=== PATIENT | female | born 1940 | race Caucasian/White ===

== ENCOUNTER → 2017-12-06 11:09 | Outpatient (CLI) | payer MEDICARE, SELFPAY ==
--- NOTE | 2017-12-06 | DI.CT.S_ITS ---
PROCEDURE: CT ABDOMEN PELVIS WO CON INDICATIONS: KIDNEY CANCER TECHNIQUE: Noncontrast 5 mm thick sections acquired from the diaphragms to the symphysis. 5 mm coronal and sagittal reformats were then performed. For radiation dose reduction, the following was used: automated exposure control, adjustment of mA and/or kV according to patient size. COMPARISON: [facility], CT, ABDOMEN/PELVIS WITHOUT CONTRAS, 10/28/2016, 13:01. [facility], CT, ABDOMEN/PELVIS WITHOUT CONTRAS, 11/24/2015, 9:13. [facility], CT, ABDOMEN/PELVIS WITHOUT CONTRAS, 02/19/2014, 10:13. FINDINGS: Image quality: Excellent. ABDOMEN: Lung bases: Lung bases are clear. Heart size is normal. Solid organs: Liver is normal in size. Gallbladder is not seen but metallic surgical clips are not present at the gallbladder fossa. The kidney likely has been resected, without utilization of metallic clips. Pancreas is normal in contours. Spleen is normal in size. No adrenal nodules. The right kidney is normal in size, without hydronephrosis or nephrolithiasis. The left kidney is surgically absent. Peritoneum and bowel: Unenhanced bowel loops demonstrate normal wall thickness and caliber. No free fluid or air. Nodes and vessels: No retroperitoneal or mesenteric adenopathy by size criteria. Aorta and inferior vena cava are normal in caliber. Miscellaneous: No ventral hernias. PELVIS: Genitourinary: Bladder wall thickness is normal. Miscellaneous: No inguinal hernias or adenopathy. Bones: No suspicious bony lesions. No vertebral body compression fractures. IMPRESSION: Prior left nephrectomy. No sign of metastatic disease. Gallbladder not visualized, likely due to prior cholecystectomy without use of metallic surgical clips. Dictated by: James Yu M.D. on 12/06/2017 at 12:46 Approved by: James Yu M.D. on 12/06/2017 at 12:54
--- NOTE | 2017-12-06 | DI.RAD.S_ITS ---
PROCEDURE: XR CHEST 2V INDICATIONS: renal cell carcinoma TECHNIQUE: 2 views of the chest were acquired. COMPARISON: [facility], CT, CT ABDOMEN PELVIS WO CON, 12/06/2017, 11:25. [facility], CR, CHEST 2 VIEW, 05/18/2017, 8:36. [facility], CR, CHEST 2 VIEW, 08/26/2015, 9:48. [facility], , CHEST 2 VIEW, 01/27/2015, 13:51. FINDINGS: Surgical changes and devices: None. Lungs and pleura: No pleural effusions or pneumothorax. Lungs are clear. There is chronic mild asymmetric elevation of the right hemidiaphragm anteriorly Mediastinum: Mediastinal contours are normal. Heart size is normal. Bones and chest wall: No suspicious bony abnormalities. Old left posterolateral upper rib fractures again noted Soft tissues appear unremarkable. IMPRESSION: No sign of metastatic disease. Old left superior lateral rib fractures that are well healed. Chronic mild asymmetric elevation of the anterior right hemidiaphragm. Dictated by: James Yu M.D. on 12/06/2017 at 12:24 Approved by: James Yu M.D. on 12/06/2017 at 12:25
== END ==
PROVIDERS: Family Provider Family Medicine; PCP Family Medicine; Visit Provider Family Medicine
DX: C64.2 Malignant neoplasm of left kidney, except renal pelvis (principal)
CPT/HCPCS: 71046; 74176

== ENCOUNTER → 2017-12-07 09:01 | Outpatient (CLI) | payer MEDICARE, SELFPAY ==
[2017-12-07 09:38] LABS: Add Manual Diff / Slide Review NO; Basophils Percent Auto 0.4 % (0-2); Eosinophils Percent Auto 2.1 % (2-4); Hematocrit 38.6 % (36-46); Hemoglobin 13.2 g/dL (12.0-16.0); Lymphocytes Percent Auto 24.5 % (25-40); Mean Corpuscular HGB Conc 34.1 % (30-36); Mean Corpuscular Hemoglobin 29.4 PG (26-34); Mean Corpuscular Volume 86.1 fL (80-100); Monocytes Percent Auto 5.8 % (3-14); Neutrophils Absolute Auto 4600 /uL (3000-5900); Neutrophils Percent Auto 67.2 % (50-75); Platelet Count 336 X10^3/uL (150-400); Red Blood Cell Count 4.49 X10^6/uL (4.0-5.2); Red Cell Distribution Width 13.3 % (11.6-14.8); White Blood Cell Count 6.9 X10^3/uL (4.5-11.0)
[2017-12-07 09:59] LABS: Alanine Aminotransferase 19 IU/L (9-52); Albumin 4.3 g/dL (3.5-5.0); Albumin Globulin Ratio 1.4 (1.0-2.8); Alkaline Phosphatase 180 U/L (38-126); Aspartate Aminotransferase 18 IU/L (14-36); BUN Creatinine Ratio 12.2 (6-22); Bilirubin Total 0.6 mg/dL (0.2-1.3); Blood Urea Nitrogen 22 mg/dL (7-17); Calcium 9.5 mg/dL (8.4-10.2); Carbon Dioxide 22 mmol/L (22-32); Chloride 105 mmol/L (98-107); Cholesterol 141 mg/dL (140-199); Estimated Glomerular Filt Rate 27.5 mL/min (>60); Glucose 150 mg/dL (80-110); HDL Cholesterol 52 mg/dL (40-60); HEMOLYSIS < 15 (0-50); LDL Cholesterol Calculated 57 mg/dL (<100); Potassium 4.4 mmol/L (3.4-5.1); Sodium 141 mmol/L (137-145); Total Protein 7.3 g/dL (6.3-8.2); Triglycerides 161 mg/dL (35-150)
[2017-12-07 10:01] LABS: Hemoglobin A1C% w Est Avg Glu 7.1 % (4.0-6.0)
[2017-12-07 10:24] LABS: Free T3, Triiodothyronine Free 3.18 pg/mL (2.77-5.27); Free T4, Direct Thyroxine 1.27 ng/dL (0.78-2.19)
[2017-12-07 10:38] LABS: Thyroid Stimulating Hormone 1.59 uIU/mL (0.47-4.68)
== END ==
PROVIDERS: Family Provider Family Medicine; PCP Family Medicine; Visit Provider Family Medicine
DX: E11.21 Type 2 diabetes mellitus with diabetic nephropathy (principal); C64.2 Malignant neoplasm of left kidney, except renal pelvis; N18.3 Chronic kidney disease, stage 3 (moderate); E05.80 Other thyrotoxicosis without thyrotoxic crisis or storm
CPT/HCPCS: 36415; 80053; 80061; 83036; 84439; 84443; 84481; 85025

== ENCOUNTER → 2017-12-12 12:12 | Outpatient (CLI) | payer MEDICARE, SELFPAY ==
[2017-12-12 14:52] LABS: Creatinine Urine Random 90.1 mg/dL; Protein (Total) Urine Random 44 mg/dL (0-12); Protein Creatinine Ratio Urine 0.48 GRAM/24H
[2017-12-14 15:14] LABS: Parathyroid Hormone Int 69 pg/mL (14-64)
== END ==
PROVIDERS: Family Provider Family Medicine; PCP Family Medicine; Visit Provider Student in an Organized Health Care Education/Training Program
DX: R80.9 Proteinuria, unspecified (principal); N25.81 Secondary hyperparathyroidism of renal origin
CPT/HCPCS: 36415; 82570; 83970; 84156

== ENCOUNTER → 2018-02-01 11:06 | Outpatient (CLI) | payer MEDICARE, SELFPAY ==
[2018-02-01 12:33] LABS: Alanine Aminotransferase 31 IU/L (9-52); Albumin 4.5 g/dL (3.5-5.0); Albumin Globulin Ratio 1.3 (1.0-2.8); Alkaline Phosphatase 199 U/L (38-126); Aspartate Aminotransferase 28 IU/L (14-36); Bilirubin Total 0.9 mg/dL (0.2-1.3); Bilirubin Unconjugated 0.5 mg/dL (0.0-1.1); Globulin 3.4 g/dL (1.7-4.1); HEMOLYSIS 19 (0-50); Total Protein 7.9 g/dL (6.3-8.2)
[2018-02-01 12:35] LABS: Add Manual Diff / Slide Review NO; Basophils Percent Auto 0.7 % (0-2); Hematocrit 40.1 % (36-46); Hemoglobin 13.9 g/dL (12.0-16.0); Lymphocytes Percent Auto 20.1 % (25-40); Mean Corpuscular HGB Conc 34.8 % (30-36); Mean Corpuscular Hemoglobin 29.7 PG (26-34); Mean Corpuscular Volume 85.3 fL (80-100); Monocytes Percent Auto 5.9 % (3-14); Neutrophils Absolute Auto 6200 /uL (3000-5900); Neutrophils Percent Auto 72.3 % (50-75); Platelet Count 363 X10^3/uL (150-400); Red Cell Distribution Width 13.3 % (11.6-14.8); White Blood Cell Count 8.6 X10^3/uL (4.5-11.0)
[2018-02-01 12:49] LABS: Free T3, Triiodothyronine Free 2.43 pg/mL (2.77-5.27); Free T4, Direct Thyroxine 1.12 ng/dL (0.78-2.19)
[2018-02-01 13:03] LABS: Thyroid Stimulating Hormone 2.96 uIU/mL (0.47-4.68)
== END ==
PROVIDERS: PCP Family Medicine; Visit Provider Internal Medicine Endocrinology, Diabetes & Metabolism
DX: E05.90 Thyrotoxicosis, unspecified without thyrotoxic crisis or storm (principal)
CPT/HCPCS: 36415; 80076; 84439; 84443; 84481; 85025

== ENCOUNTER → 2018-03-08 10:38 | Outpatient (CLI) | payer MEDICARE, SELFPAY ==
[2018-03-08 11:53] LABS: BUN Creatinine Ratio 13.1 (6-22); Blood Urea Nitrogen 21 mg/dL (7-17); Calcium 9.1 mg/dL (8.4-10.2); Carbon Dioxide 24 mmol/L (22-32); Chloride 106 mmol/L (98-107); Estimated Glomerular Filt Rate 31.4 mL/min (>60); Glucose 98 mg/dL (80-110); HEMOLYSIS < 15 (0-50); Potassium 4.5 mmol/L (3.4-5.1); Sodium 141 mmol/L (137-145)
[2018-03-08 13:53] LABS: Creatinine Urine Random 98.9 mg/dL; Protein (Total) Urine Random 37 mg/dL (0-12); Protein Creatinine Ratio Urine 0.37 GRAM/24H
== END ==
PROVIDERS: Family Provider Family Medicine; PCP Family Medicine; Visit Provider Student in an Organized Health Care Education/Training Program
DX: N05.9 Unspecified nephritic syndrome with unspecified morphologic changes (principal); D64.9 Anemia, unspecified; R80.9 Proteinuria, unspecified
CPT/HCPCS: 36415; 80048; 82570; 84156; 85014; 85018

== ENCOUNTER → 2018-03-24 10:56 | Outpatient (CLI) | payer MEDICARE, SELFPAY ==
[2018-03-24 11:50] LABS: Add Manual Diff / Slide Review NO; Eosinophils Percent Auto 1.3 % (2-4); Hematocrit 39.7 % (36-46); Hemoglobin 13.4 g/dL (12.0-16.0); Lymphocytes Percent Auto 25.5 % (25-40); Mean Corpuscular HGB Conc 33.6 % (30-36); Mean Corpuscular Hemoglobin 29.2 PG (26-34); Neutrophils Absolute Auto 5300 /uL (3000-5900); Neutrophils Percent Auto 66.2 % (50-75); Platelet Count 328 X10^3/uL (150-400); Red Blood Cell Count 4.57 X10^6/uL (4.0-5.2); Red Cell Distribution Width 13.5 % (11.6-14.8)
[2018-03-24 11:58] LABS: Alanine Aminotransferase 32 IU/L (9-52); Albumin 4.3 g/dL (3.5-5.0); Albumin Globulin Ratio 1.4 (1.0-2.8); Alkaline Phosphatase 195 U/L (38-126); Aspartate Aminotransferase 25 IU/L (14-36); Bilirubin Total 0.7 mg/dL (0.2-1.3); Bilirubin Unconjugated 0.4 mg/dL (0.0-1.1); HEMOLYSIS 41 (0-50); Total Protein 7.3 g/dL (6.3-8.2)
[2018-03-24 12:15] LABS: Free T3, Triiodothyronine Free 2.96 pg/mL (2.77-5.27); Free T4, Direct Thyroxine 1.23 ng/dL (0.78-2.19)
[2018-03-24 12:29] LABS: Thyroid Stimulating Hormone 1.38 uIU/mL (0.47-4.68)
== END ==
PROVIDERS: Family Provider Family Medicine; PCP Family Medicine; Visit Provider Internal Medicine Endocrinology, Diabetes & Metabolism
DX: E05.90 Thyrotoxicosis, unspecified without thyrotoxic crisis or storm (principal)
CPT/HCPCS: 36415; 80076; 84439; 84443; 84481; 85025

== ENCOUNTER 2018-04-15 14:39 | Emergency (ER) | payer MEDICARE, SELFPAY ==
--- NOTE | 2018-04-15 14:42 | ED.UPPEXIN ---
HPI - Extremity Injury (Upper) <PABLO Mora - Last Filed: 04/15/18 22:09> General Chief Complaint: Extremity Injury, Upper Stated Complaint: RT ARM BROKEN AND IN PAIN Time Seen by Provider: 04/15/18 14:42 Source: patient Mode of arrival: ambulatory Limitations: no limitations History of Present Illness HPI narrative: 77-year-old female with history of chronic back pain and is a nonsmoker here for complaint of pain to her right forearm area and wrist. She was seen yesterday in the emergency room in [facility] after she slipped on the ice causing a ground level fall. She was diagnosed with a right wrist fracture. She was put in a splint. She reports that she has increasing pain into day to the forearm area. She contacted her doctor who sent her here for further evaluation and treatment and evaluation for compartment syndrome. She denies any new trauma to the area pain is limited to the right forearm area. Related Data Allergies Allergy/AdvReac Type Severity Reaction Status Date / Time No Known Drug Allergies Allergy Verified 04/15/18 14:49 Review of Systems <PABLO Mora - Last Filed: 04/15/18 22:09> Constitutional Denies chills, Denies fever(s), Denies lethargy and Denies weakness Eyes Denies change in vision, Denies eye discharge, Denies irritation and Denies loss of vision ENT Ears, Nose, Mouth, and Throat: Denies change in voice, Denies neck pain and Denies sore throat Cardiovascular Denies chest pain, Denies irregular heart rhythm, Denies lightheadedness, Denies palpitations, Denies dyspnea, Denies dyspnea on exertion and Denies orthopnea Respiratory Denies cough, Denies dyspnea, Denies dyspnea on exertion and Denies wheezing Gastrointestinal Gastrointestinal: Denies abdominal pain, Denies change in bowel habits, Denies diarrhea, Denies nausea and Denies vomiting Genitourinary Denies hematuria, Denies flank pain, Denies urinary incontinence and Denies urinary urgency Musculoskeletal Denies neck pain Comments: Right wrist and forearm pain Integumentary/Breasts Denies pruritus, Denies erythema, Denies rash and Denies wounds Neurologic Denies confusion, Denies loss of vision and Denies weakness Psychiatric Denies anxiety, Denies confusion, Denies depression, Denies homicidal ideation and Denies suicidal ideation Endocrine Denies palpitations Hematologic/Lymphatic Denies easy bruising Allergic/Immunologic Denies wheezing Exam <PABLO Mora - Last Filed: 04/15/18 22:09> Initial Vital Signs Initial Vital Signs: Vital Signs Temperature 98.2 F 04/15/18 14:49 Pulse Rate 69 04/15/18 14:49 Respiratory Rate 16 04/15/18 14:49 Blood Pressure 144/56 H 04/15/18 14:49 Pulse Oximetry 98 04/15/18 14:49 Const General: cooperative and well developed Nutritional Appearance: well nourished Orientation: alert, awake, oriented x3 and not confused HENOR Mouth: oral mucosae normal and moist mucous membranes Eyes Conjunctivae: conjunctivae normal Sclera: sclerae normal Pupils: PERRL EOM: EOM intact bilaterally Resp Effort & Inspection: normal respiratory effort, able to speak in complete sentences, no respiratory distress and no use of accessory muscles Auscultation: clear to auscultation bilaterally, no rales, no rhonchi and no wheezes Cardio Rate: regular rate Rhythm: regular rhythm Heart Sounds: no click, no gallops, no murmurs and no rubs Pulses: normal peripheral pulses Skin General: no rashes or lesions noted, No jaundice and No petechiae Neuro General: alert, oriented x3, gait normal and no focal motor deficits Speech: speech normal Extrem Other: Ecchymosis and slight swelling to the right wrist area. No snuffbox tenderness. Tenderness on palpation to the forearm area and to the hand and wrist. Distal sensation is intact. Distal pulses are intact. Distal range of motion is intact. No open lesions. No deformities. <Oliver Mohr DO - Last Filed: 04/17/18 20:08> Initial Vital Signs Initial Vital Signs: Vital Signs Temperature 98.2 F 04/15/18 14:49 Pulse Rate 69 04/15/18 14:49 Respiratory Rate 16 04/15/18 14:49 Blood Pressure 144/56 H 04/15/18 14:49 Pulse Oximetry 98 04/15/18 14:49 Course <PABLO Mora - Last Filed: 04/15/18 22:09> Orders Ordered: ED Orders 04/15/18 15:12 XR forearm RT 2V Stat Vital Signs - 8 hr 04/15/18 14:49 04/15/18 17:11 Temperature 98.2 F 98.4 F Pulse Rate 69 65 Respiratory Rate 16 16 Blood Pressure 144/56 H Pulse Oximetry 98 97 <Oliver Mohr DO - Last Filed: 04/17/18 20:08> Orders Ordered: ED Orders 04/15/18 15:12 XR forearm RT 2V Stat Vital Signs - 8 hr 04/15/18 14:49 04/15/18 17:11 Temperature 98.2 F 98.4 F Pulse Rate 69 65 Respiratory Rate 16 16 Blood Pressure 144/56 H Pulse Oximetry 98 97 MDM - Extremity Injury (Upper) <PABLO Mora - Last Filed: 04/15/18 22:09> Imaging Data Right forearm: Radiologist's impression: [address] [address] XRay Report Signed Patient: Anita Aguirre CMR#: [id number] : 3Acct:[id number] Age/Sex: 77 / FDate of Service: 04/15/18 Loc: ED Accession Number: [id number] Procedure: XR forearm RT 2V Ordering Provider: Cayden Shin PROCEDURE: XR FOREARM RT 2V INDICATIONS: Recent diagnosis of r wrist fx pain now to all of forearm TECHNIQUE: 2 views of the forearm were acquired. COMPARISON: Outside Facility, RG, XR WRIST 3V RIGHT, 04/14/2018, 15:06. FINDINGS: Bones: Mildly impacted distal radial metaphyseal fracture is present. There is suspected to be a poorly visualized focus of intra-articular extension. Ulnar styloid fracture is present. Overall appearance is unchanged compared to prior exam. Soft tissues: No suspicious soft tissue calcifications or masses. IMPRESSION: Distal radial metaphyseal fracture with suspected mild degree of intra-articular extension. Ulnar styloid fracture is noted. Dictated by: Fransisca Smith M.D. on 04/15/2018 at 15:50 Approved by: Fransisca Smith M.D. on 04/15/2018 at 15:51 [facility] Narrative Medical decision making narrative: Splint was removed to the right forearm. After short while her pain decreased. Repeat film of the right forearm was obtained and shows a distal radial metaphyseal fracture and also suspected ulnar styloid fracture. She is placed in a new splint a sugar-tong splint to the right forearm. Use currently prescribed pain management regimen as needed for any discomfort. Ice and elevation help with any swelling. Call Orthopedics office tomorrow to schedule follow-up appointment later this week. For any worsening symptoms return to the emergency room. Discharge Plan Departure Patient Disposition: Home Clinical Impression: Fracture of right wrist Discharge Date/Time: 04/15/18 17:12 Interventions: ED Discharge Assessment Last Done: 04/15/18 17:11 Instructions: DI for Wrist Fracture Activity Restrictions/Additional Instructions: X-ray of the right forearm shows distal fractures of the radius and also the ulna. You are placed in a splint for comfort and support. You are also placed in a sling use as directed. Use currently prescribed pain management regimen as needed for any discomfort. Follow up with Orthopedics. Call the office tomorrow to schedule follow-up appointment. Use ice and elevation to help with swelling. For any worsening symptoms return to the emergency room. Referrals: Mady Mak MD [Primary Care Provider] - Ben Mao MD [Physician] - <Oliver Mohr DO - Last Filed: 04/17/18 20:08> Cosign ED Attending Kera Attestation: I was available for consultation during this patient's emergency department encounter
[2018-04-15 14:49] VITALS: BP 144/56; PULSE 69; RESP 16; TEMP 36.8; O2SAT 98; BMI 34.7
--- NOTE | 2018-04-15 15:12 | DI.RAD.S_ITS ---
PROCEDURE: XR FOREARM RT 2V INDICATIONS: Recent diagnosis of r wrist fx pain now to all of forearm TECHNIQUE: 2 views of the forearm were acquired. COMPARISON: Outside Facility, RG, XR WRIST 3V RIGHT, 04/14/2018, 15:06. FINDINGS: Bones: Mildly impacted distal radial metaphyseal fracture is present. There is suspected to be a poorly visualized focus of intra-articular extension. Ulnar styloid fracture is present. Overall appearance is unchanged compared to prior exam. Soft tissues: No suspicious soft tissue calcifications or masses. IMPRESSION: Distal radial metaphyseal fracture with suspected mild degree of intra-articular extension. Ulnar styloid fracture is noted. Dictated by: Fransisca Smith M.D. on 04/15/2018 at 15:50 Approved by: Fransisca Smith M.D. on 04/15/2018 at 15:51
--- NOTE | 2018-04-15 16:15 | ED_ITS ---
HPI - Extremity Injury (Upper) <PABLO Mora - Last Filed: 04/15/18 22:09> General Chief Complaint: Extremity Injury, Upper Stated Complaint: RT ARM BROKEN AND IN PAIN Time Seen by Provider: 04/15/18 14:42 Source: patient Mode of arrival: ambulatory Limitations: no limitations History of Present Illness HPI narrative: 77-year-old female with history of chronic back pain and is a nonsmoker here for complaint of pain to her right forearm area and wrist. She was seen yesterday in the emergency room in [facility] after she slipped on the ice causing a ground level fall. She was diagnosed with a right wrist fracture. She was put in a splint. She reports that she has increasing pain into day to the forearm area. She contacted her doctor who sent her here for further evaluation and treatment and evaluation for compartment syndrome. She denies any new trauma to the area pain is limited to the right forearm area. Related Data Allergies Allergy/AdvReac Type Severity Reaction Status Date / Time No Known Drug Allergies Allergy Verified 04/15/18 14:49 Review of Systems <PABLO Mora - Last Filed: 04/15/18 22:09> Constitutional Denies chills, Denies fever(s), Denies lethargy and Denies weakness Eyes Denies change in vision, Denies eye discharge, Denies irritation and Denies loss of vision ENT Ears, Nose, Mouth, and Throat: Denies change in voice, Denies neck pain and Denies sore throat Cardiovascular Denies chest pain, Denies irregular heart rhythm, Denies lightheadedness, Denies palpitations, Denies dyspnea, Denies dyspnea on exertion and Denies orthopnea Respiratory Denies cough, Denies dyspnea, Denies dyspnea on exertion and Denies wheezing Gastrointestinal Gastrointestinal: Denies abdominal pain, Denies change in bowel habits, Denies diarrhea, Denies nausea and Denies vomiting Genitourinary Denies hematuria, Denies flank pain, Denies urinary incontinence and Denies urinary urgency Musculoskeletal Denies neck pain Comments: Right wrist and forearm pain Integumentary/Breasts Denies pruritus, Denies erythema, Denies rash and Denies wounds Neurologic Denies confusion, Denies loss of vision and Denies weakness Psychiatric Denies anxiety, Denies confusion, Denies depression, Denies homicidal ideation and Denies suicidal ideation Endocrine Denies palpitations Hematologic/Lymphatic Denies easy bruising Allergic/Immunologic Denies wheezing Exam <PABLO Mora - Last Filed: 04/15/18 22:09> Initial Vital Signs Initial Vital Signs: Vital Signs Temperature 98.2 F 04/15/18 14:49 Pulse Rate 69 04/15/18 14:49 Respiratory Rate 16 04/15/18 14:49 Blood Pressure 144/56 H 04/15/18 14:49 Pulse Oximetry 98 04/15/18 14:49 Const General: cooperative and well developed Nutritional Appearance: well nourished Orientation: alert, awake, oriented x3 and not confused HENWI Mouth: oral mucosae normal and moist mucous membranes Eyes Conjunctivae: conjunctivae normal Sclera: sclerae normal Pupils: PERRL EOM: EOM intact bilaterally Resp Effort & Inspection: normal respiratory effort, able to speak in complete sentences, no respiratory distress and no use of accessory muscles Auscultation: clear to auscultation bilaterally, no rales, no rhonchi and no wheezes Cardio Rate: regular rate Rhythm: regular rhythm Heart Sounds: no click, no gallops, no murmurs and no rubs Pulses: normal peripheral pulses Skin General: no rashes or lesions noted, No jaundice and No petechiae Neuro General: alert, oriented x3, gait normal and no focal motor deficits Speech: speech normal Extrem Other: Ecchymosis and slight swelling to the right wrist area. No snuffbox tenderness. Tenderness on palpation to the forearm area and to the hand and wrist. Distal sensation is intact. Distal pulses are intact. Distal range of motion is intact. No open lesions. No deformities. <Oliver Mohr DO - Last Filed: 04/17/18 20:08> Initial Vital Signs Initial Vital Signs: Vital Signs Temperature 98.2 F 04/15/18 14:49 Pulse Rate 69 04/15/18 14:49 Respiratory Rate 16 04/15/18 14:49 Blood Pressure 144/56 H 04/15/18 14:49 Pulse Oximetry 98 04/15/18 14:49 Course <PABLO oMra - Last Filed: 04/15/18 22:09> Orders Ordered: ED Orders 04/15/18 15:12 XR forearm RT 2V Stat Vital Signs - 8 hr 04/15/18 14:49 04/15/18 17:11 Temperature 98.2 F 98.4 F Pulse Rate 69 65 Respiratory Rate 16 16 Blood Pressure 144/56 H Pulse Oximetry 98 97 <Oliver Mohr DO - Last Filed: 04/17/18 20:08> Orders Ordered: ED Orders 04/15/18 15:12 XR forearm RT 2V Stat Vital Signs - 8 hr 04/15/18 14:49 04/15/18 17:11 Temperature 98.2 F 98.4 F Pulse Rate 69 65 Respiratory Rate 16 16 Blood Pressure 144/56 H Pulse Oximetry 98 97 MDM - Extremity Injury (Upper) <PABLO Mora - Last Filed: 04/15/18 22:09> Imaging Data Right forearm: Radiologist's impression: [address] [address] XRay Report Signed Patient: Anita Aguirre CMR#: [id number] : 3Acct:[id number] Age/Sex: 77 / FDate of Service: 04/15/18 Loc: ED Accession Number: [id number] Procedure: XR forearm RT 2V Ordering Provider: Cayden Shin PROCEDURE: XR FOREARM RT 2V INDICATIONS: Recent diagnosis of r wrist fx pain now to all of forearm TECHNIQUE: 2 views of the forearm were acquired. COMPARISON: Outside Facility, RG, XR WRIST 3V RIGHT, 04/14/2018, 15:06. FINDINGS: Bones: Mildly impacted distal radial metaphyseal fracture is present. There is suspected to be a poorly visualized focus of intra-articular extension. Ulnar styloid fracture is present. Overall appearance is unchanged compared to prior exam. Soft tissues: No suspicious soft tissue calcifications or masses. IMPRESSION: Distal radial metaphyseal fracture with suspected mild degree of intra-articular extension. Ulnar styloid fracture is noted. Dictated by: Fransisca Smith M.D. on 04/15/2018 at 15:50 Approved by: Fransisca Smith M.D. on 04/15/2018 at 15:51 [facility] Narrative Medical decision making narrative: Splint was removed to the right forearm. After short while her pain decreased. Repeat film of the right forearm was obtained and shows a distal radial metaphyseal fracture and also suspected ulnar styloid fracture. She is placed in a new splint a sugar-tong splint to the right forearm. Use currently prescribed pain management regimen as needed for any discomfort. Ice and elevation help with any swelling. Call Orthopedics office tomorrow to schedule follow-up appointment later this week. For any worsening symptoms return to the emergency room. Discharge Plan Departure Patient Disposition: Home Clinical Impression: Fracture of right wrist Discharge Date/Time: 04/15/18 17:12 Interventions: ED Discharge Assessment Last Done: 04/15/18 17:11 Instructions: DI for Wrist Fracture Activity Restrictions/Additional Instructions: X-ray of the right forearm shows distal fractures of the radius and also the ulna. You are placed in a splint for comfort and support. You are also placed in a sling use as directed. Use currently prescribed pain management regimen as needed for any discomfort. Follow up with Orthopedics. Call the office tomorrow to schedule follow-up appointment. Use ice and elevation to help with swelling. For any worsening symptoms return to the emergency room. Referrals: Mady Mak MD [Primary Care Provider] - Ben Mao MD [Physician] - <Oliver Mohr DO - Last Filed: 04/17/18 20:08> Cosign ED Attending Kera Attestation: I was available for consultation during this patient's emergency department encounter
[2018-04-15 17:11] VITALS: PULSE 65; RESP 16; TEMP 36.9; O2SAT 97
== END 2018-04-15 17:12 | disposition home or self-care (01) ==
PROVIDERS: Emergency Provider Nurse Practitioner Family; Family Provider Family Medicine; PCP Family Medicine
DX: S62.101A Fracture of unspecified carpal bone, right wrist, initial encounter for closed fracture (principal); W01.0XXA Fall on same level from slipping, tripping and stumbling without subsequent striking against object, initial encounter
CPT/HCPCS: 73090; 99282; 99283

== ENCOUNTER → 2018-04-18 12:37 | Outpatient (CLI) | payer MEDICARE, SELFPAY ==
[2018-04-18 14:15] LABS: Add Manual Diff / Slide Review NO; Basophils Percent Auto 0.8 % (0-2); Eosinophils Percent Auto 2.1 % (2-4); Hematocrit 38.5 % (36-46); Lymphocytes Percent Auto 22.4 % (25-40); Mean Corpuscular HGB Conc 33.9 % (30-36); Mean Corpuscular Hemoglobin 29.3 PG (26-34); Mean Corpuscular Volume 86.6 fL (80-100); Monocytes Percent Auto 8.5 % (3-14); Neutrophils Absolute Auto 5500 /uL (3000-5900); Neutrophils Percent Auto 66.2 % (50-75); Platelet Count 340 X10^3/uL (150-400); Red Blood Cell Count 4.45 X10^6/uL (4.0-5.2); Red Cell Distribution Width 13.3 % (11.6-14.8); White Blood Cell Count 8.3 X10^3/uL (4.5-11.0)
== END ==
PROVIDERS: Family Provider Family Medicine; PCP Family Medicine; Visit Provider Orthopaedic Surgery
DX: Z01.818 Encounter for other preprocedural examination (principal); Z01.812 Encounter for preprocedural laboratory examination
CPT/HCPCS: 36415; 85025

== ENCOUNTER 2018-04-20 08:27 | Day surgery (SDC) | payer MEDICARE, SELFPAY ==
[2018-04-20] VITALS (7 sets, daily range): BP systolic 115–134; BP diastolic 48–63; PULSE 49–66; RESP 15–20; TEMP 36.2–36.7; O2SAT 92–99
--- NOTE | 2018-04-20 | DI.RAD.S_ITS ---
PROCEDURE: XR WRIST RT 2V INDICATIONS: RIGHT WRIST ORIF, RIGHT WRIST PAIN, RIGHT WRIST FRACTURE TECHNIQUE: 2 views of the wrist were acquired. COMPARISON: [facility], , XR FOREARM RT 2V, 04/15/2018, 15:18. FINDINGS: 2 fluoroscopy images demonstrate open reduction and internal fixation of distal radial metaphyseal fracture. The surgical plate is slightly angulated in relation to the distal radius. Alignment is otherwise anatomic. IMPRESSION: Open reduction and internal fixation of distal radial metaphyseal fracture. The surgical plate appears slightly rotated longitudinally. Dictated by: Vesta Owen M.D. on 04/20/2018 at 14:32 Approved by: Vesta Owen M.D. on 04/20/2018 at 14:34
[2018-04-20] MEDS: LACTATED RINGERS 1,000 ML 42 ML IV (09:00)
--- NOTE | 2018-04-20 09:31 | PM.PREOP ---
Pre-operative Note Interval Note Pre-op Check: Yes History & Physical Reviewed by Physician and Yes Exam Performed Changes: No
--- NOTE | 2018-04-20 11:29 | SUR.OPER ---
Supine on padded OR bed, head on pillow, left arm secured on padded arm boards at <90 degrees abduction, right arm on hand table, legs uncrossed, safety belt at thigh.
[2018-04-20] MEDS: SODIUM CHLORIDE 0.9% 1,000 ML, GENTAMICIN 80 MG IRR (11:36)
--- NOTE | 2018-04-20 11:36 | PM.PROC.1 ---
Procedures Date/Time Date of procedure: 04/20/18 Time of procedure: 10:45 General Procedure description: Ultrasound guided supraclavicular brachial plexus nerve block for post op pain control after Right wrist ORIF by Dr. Mao. Risk and benefits of procedure discussed with patient. ASA monitoring applied to patient. O2 given via nasal cannula. 2 mg Versed and 50 mcg fentanyl given for procedural sedation. Skin site was prepped with chlorhexidine and allowed to fully dry. Sterile gloves, mask, hat and probe cover were used to maintain sterility. 2% lidocaine and 30ga needle was used to make a small skin wheal at needle insertion site. Under ultrasound guidance, a 21ga 50mm Pajunk needle was directed into near the brachial plexus from the supraclavicular approach near the subclavian artery. Patient reported minor parasthesias that resolved with needle repositioning. After negative aspiration, 20 mL 0.5% ropivicaine and 10mg dexamethasone were injected around brachial plexus. Patient tolerated procedure well.
[2018-04-20] MEDS: CEFAZOLIN 1 GM VIAL 2 GM IV (11:38)
--- NOTE | 2018-04-20 12:07 | PM.OP.1 ---
Operative Date/Time/Diagnoses Date of procedure: 04/20/18 Time of procedure: 12:07 Pre-op diagnosis: Right intra-articular distal radius fracture Post-op diagnosis: same Procedure & Clinicians Procedure: ORIF of right intra-articular distal radius fracture Same procedure as scheduled: Yes Indications: 77-year-old female with a displaced distal radius fracture. It is felt that she would benefit from operative reduction and stabilization. Risks and benefits of surgery discussed and appropriate consent obtained. Surgeon: Ben Mao Click Yes if Unassisted: Yes Anesthesia Type: General and Peripheral nerve block Operative Notes Findings: None Closure Type: primary Specimen(s): none sent Implants & Drains: [employer] DVR plate Applied: catheter Estimated Blood Loss (mL): 5 Tourniquet time (min): 30 Procedure in detail: The patient was brought to the operating room and intubated on the table. Time-out was performed. Attention was turned towards the well-marked right wrist. Preoperative antibiotics were given. The arm was prepped and draped in the standard sterile fashion. An Esmarch was used to exsanguinate the limb and the tourniquet was inflated. A 8 cm incision was made along the FCR course curving radially distally across the wrist crease. We sharply dissected through the FCR tendon sheath and retracted the tendon and then came down to the quadratus. This was elevated off the distal radius. The fracture was exposed and cleaned up with a curette. We then reduced the fracture and confirmed under x-ray. We then took a [employer] volar plate. It was placed against the bone and x-ray was taken to confirm positioning. One screw was placed through the shaft in the variable hole. This was checked under x-ray and tightened down. We then placed distal row pegs and proximal row screws in the distal fragment. We started along the ulnar column and then finished out in the styloid. We then went back and placed the final shaft screws. The wrist was stressed and shucked under xray to make sure it was stable. Final x-rays were taken. The wound was irrigated. The superficial skin were closed. The patient was placed in a well-padded volar splint. They are extubated and brought to recovery with no complications. Complications: none Condition: stable Disposition: PACU Plan for aftercare: Outpatient. Follow-up in 1.5 weeks and can begin hand therapy at that point.
== END 2018-04-20 13:37 | disposition home or self-care (01) ==
PROVIDERS: Family Provider Family Medicine; PCP Family Medicine; Visit Provider Orthopaedic Surgery
PROC: (CPT 25609; principal; 2018-04-20 09:45)
DX: S52.571A Other intraarticular fracture of lower end of right radius, initial encounter for closed fracture (principal); G89.18 Other acute postprocedural pain; W00.0XXA Fall on same level due to ice and snow, initial encounter; E11.9 Type 2 diabetes mellitus without complications; Z79.4 Long term (current) use of insulin; I69.354 Hemiplegia and hemiparesis following cerebral infarction affecting left non-dominant side
CPT/HCPCS: 25609; 64415; 64450; 73100; 76000; J0690; J1100; J2250; J2405; J2704; J2795; J3010

== ENCOUNTER → 2018-05-07 15:27 | Outpatient (REF) | payer MEDICARE, SELFPAY | LOC: LAB 15:27 | PROVIDERS: Family Provider Family Medicine; PCP Family Medicine; Visit Provider Family Medicine | DX: R31.9 Hematuria, unspecified (principal); R50.9 Fever, unspecified | CPT/HCPCS: 87077; 87086; 87186 ==

== ENCOUNTER → 2018-06-01 10:19 | Outpatient (CLI) | payer MEDICARE, SELFPAY ==
[2018-06-01 11:22] LABS: Free T3, Triiodothyronine Free 3.05 pg/mL (2.77-5.27); Free T4, Direct Thyroxine 1.32 ng/dL (0.78-2.19)
[2018-06-01 11:35] LABS: Thyroid Stimulating Hormone 0.05 uIU/mL (0.47-4.68)
== END ==
PROVIDERS: Family Provider Family Medicine; PCP Family Medicine; Visit Provider Internal Medicine Endocrinology, Diabetes & Metabolism
DX: E04.2 Nontoxic multinodular goiter (principal)
CPT/HCPCS: 36415; 84439; 84443; 84481

== ENCOUNTER → 2018-06-29 12:07 | Outpatient (CLI) | payer MEDICARE, SELFPAY ==
--- NOTE | 2018-06-29 | DI.MG.S_ITS ---
BILATERAL DIGITAL SCREENING MAMMOGRAM 3D/2D WITH CAD: 06/29/2018 CLINICAL: Routine screening. Comparison is made to exams dated: 03/10/2016 mammogram, 04/25/2017 mammogram, and 02/16/2015 mammogram - [facility]. There are scattered fibroglandular elements in both breasts. Current study was also evaluated with a Computer Aided Detection (CAD) system. There are benign calcifications in both breasts. No significant masses, calcifications, or other findings are seen in either breast. There has been no significant interval change. IMPRESSION: There is no mammographic evidence of malignancy. A 1 year screening mammogram is recommended. This exam was interpreted at Station ID: [id number]. NOTE: For mammograms, a report in lay terms will be sent to the patient. Approximately 15% of breast malignancies will not be visualized mammographically. In the management of a palpable breast mass, a negative mammogram must not discourage biopsy of a clinically suspicious lesion. Electronically Signed By: Valentino diego/mike:06/29/2018 13:57:06 copy to: Mady Mak letter sent: Normal Exam ACR BI-RADS Category 2: Benign Finding(s) [id number]
--- NOTE | 2018-06-29 | DI.US.S_ITS ---
PROCEDURE: US ABDOMEN COMPLETE INDICATIONS: History of left renal cell carcinoma, status post left laparoscopic radical nephrectomy. TECHNIQUE: Real-time scanning was performed of the abdominal and retroperitoneal organs, with image documentation. COMPARISON: [facility], , ABDOMEN COMPLETE, 05/18/2017, 9:02. FINDINGS: Liver: Liver is normal in size and homogeneous in echotexture. Gallbladder: Removed Biliary ducts: Intrahepatic bile ducts are non-dilated. Extrahepatic bile duct caliber measures 3-4 mm. Normal is 6-7 mm or less in diameter, or 10 mm or less post-cholecystectomy. Pancreas: Visualized portions of the pancreas are sonographically normal. Spleen: Spleen is normal in size and homogeneous in echotexture. Kidneys: The left kidney has been removed. No abnormalities can be seen within the left renal fossa. The right kidney demonstrates normal length of 10.7 cm. The renal cortex measures within normal limits for thickness. No shadowing stones are seen. No right renal masses are seen. No hydronephrosis. Aorta: Visualized aorta is normal in caliber at less than 3 cm. Iliacs: Not seen, obscured by overlying bowel gas. IVC: Intrahepatic inferior vena cava is patent. Miscellaneous: No free abdominal fluid. IMPRESSION: Left nephrectomy, without abnormality seen within the nephrectomy bed. Unremarkable right kidney. Status post cholecystectomy, without biliary dilatation. Dictated by: Franki Ferguson M.D. on 06/29/2018 at 13:05 Approved by: Franki Ferguson M.D. on 06/29/2018 at 13:07
--- NOTE | 2018-06-29 | DI.US.S_ITS ---
PROCEDURE: US THYROID INDICATIONS: ROUTINE TECHNIQUE: Real-time scanning was performed of the thyroid gland, with image documentation. COMPARISON: [facility], US, THYROID, 04/04/2017, 11:31. FINDINGS: Right: Thyroid lobe measures 5.0 x 1.4 x 1.6 cm, and is homogeneous in echotexture. Left: Thyroid lobe measures 7.3 x 4.1 x 3.9 cm, and is homogenous in echotexture. Isthmus: 8 mm thick. Nodule number: 1 Location: Right inferior lobe Size: 6 x 4 x 5 mm cm. slightly decreased in size Composition: Solid Echogenicity: Hypoechoic Shape: wider than tall. Margins: Ill-defined Echogenic foci: None Total points: 3 ACR TI-RADS category: 4 Nodule number: 2 Location: Right inferior Size: 8 x 7 x 7 mm cm. grossly unchanged in size Composition: Solid Echogenicity: Hypoechoic Shape: wider than tall. Margins: Smooth Echogenic foci: None Total points: 4 ACR TI-RADS category: 4 Nodule number: 3 Location: Right superior pole Size: 5 x 3 x 4 mm cm. grossly unchanged to slightly decreased in size. Composition: Predominantly cystic Echogenicity: Hypoechoic Shape: wider than tall. Margins: Smooth Echogenic foci: None Total points: 3 ACR TI-RADS category: 3 Nodule number: 4 Location: Left superior pole Size: 2.0 x 1.4 x 2.1 cm. grossly unchanged to slightly decreased in size Composition: Predominant solid Echogenicity: Isoechoic Shape: wider than tall. Margins: Smooth Echogenic foci: None Total points: 3 ACR TI-RADS category: 3 Nodule number: 5 (previously FNA) Location: Left mid to inferior pole Size: 5.7 x 4.0 x 5.0 cm. Slightly increased in size (previously 5.1 x 4.0 x 3.1 cm) Composition: Predominant solid Echogenicity: Isoechoic Shape: wider than tall. Margins: Smooth Echogenic foci: None Total points: 3 ACR TI-RADS category: 3 Nodule number: 6 Location: Isthmus Size: 6 x 4 x 6 mm. Unchanged to slightly increased in size. Composition: Predominant cystic Echogenicity: Hypoechoic Shape: wider than tall. Margins: Smooth Echogenic foci: None Total points: 3 ACR TI-RADS category: 3 IMPRESSION: Multiple bilateral thyroid nodules, recommendations as below ACR TI-RADS definitions and recommendations: TI-RADS 1 (benign): 0 points. FNA not needed. TI-RADS 2 (not suspicious): 2 points. FNA not needed. TI-RADS 3 (mildly suspicious): 3 points. * FNA if 2.5 cm or larger, follow up if 1.5 cm or larger (at 1, 3, and 5 years). TI-RADS 4 (moderately suspicious): 4-6 points. * FNA if 1.5 cm or larger, follow up if 1 cm or larger (at 1, 2, 3, and 5 years). TI-RADS 5 (highly suspicious): 7 points or more. * FNA if 1 cm or larger, follow up if 0.5 cm or larger (every year for 5 years). Dictated by: Alfred Lowery M.D. on 06/29/2018 at 15:28 Approved by: Alfred Lowery M.D. on 06/29/2018 at 15:43
== END ==
PROVIDERS: Family Provider Family Medicine; PCP Family Medicine; Visit Provider Internal Medicine Endocrinology, Diabetes & Metabolism
DX: Z12.31 Encounter for screening mammogram for malignant neoplasm of breast (principal); M85.852 Other specified disorders of bone density and structure, left thigh; Z78.0 Asymptomatic menopausal state; E04.2 Nontoxic multinodular goiter; E11.9 Type 2 diabetes mellitus without complications; Z85.528 Personal history of other malignant neoplasm of kidney; Z90.49 Acquired absence of other specified parts of digestive tract
CPT/HCPCS: 76536; 76700; 77063; 77067; 77080

== ENCOUNTER → 2018-07-27 08:53 | Outpatient (CLI) | payer MEDICARE, SELFPAY ==
[2018-07-27 09:48] LABS: Hematocrit 39.9 % (36-46); Hemoglobin 13.4 g/dL (12.0-16.0)
[2018-07-27 10:17] LABS: BUN Creatinine Ratio 16.9 (6-22); Blood Urea Nitrogen 22 mg/dL (7-17); Calcium 8.9 mg/dL (8.4-10.2); Carbon Dioxide 22 mmol/L (22-32); Chloride 103 mmol/L (98-107); Estimated Glomerular Filt Rate 39.9 mL/min (>60); Glucose 125 mg/dL (80-110); HEMOLYSIS < 15 (0-50); Potassium 4.6 mmol/L (3.4-5.1); Sodium 136 mmol/L (137-145)
[2018-07-27 10:44] LABS: Creatinine Urine Random 132.8 mg/dL; Protein (Total) Urine Random 54 mg/dL (0-12)
[2018-07-31 13:53] LABS: Parathyroid Hormone Int 345 pg/mL (14-64)
== END ==
PROVIDERS: Family Provider Family Medicine; PCP Family Medicine; Visit Provider Student in an Organized Health Care Education/Training Program
DX: N05.9 Unspecified nephritic syndrome with unspecified morphologic changes (principal); D64.9 Anemia, unspecified; N25.81 Secondary hyperparathyroidism of renal origin; R80.9 Proteinuria, unspecified
CPT/HCPCS: 36415; 80048; 82570; 83970; 84156; 85014; 85018

== ENCOUNTER → 2018-11-16 11:42 | Outpatient (CLI) | payer MEDICARE, SELFPAY ==
[2018-11-16 13:10] LABS: Add Manual Diff / Slide Review NO; Basophils Absolute Auto 0 /uL (0-100); Basophils Percent Auto 0.3 % (0-2); Eosinophils Absolute Auto 100 /uL (0-450); Eosinophils Percent Auto 1.7 % (2-4); Hematocrit 38.2 % (36-46); Hemoglobin 12.9 g/dL (12.0-16.0); Lymphocytes Absolute Auto 2200 /uL (1100-4500); Lymphocytes Percent Auto 30.7 % (25-40); Mean Corpuscular HGB Conc 33.9 % (30-36); Mean Corpuscular Hemoglobin 29.4 PG (26-34); Mean Corpuscular Volume 86.9 fL (80-100); Monocytes Absolute Auto 500 /uL (0-900); Monocytes Percent Auto 7.4 % (3-14); Neutrophils Absolute Auto 4300 /uL (1500-7000); Neutrophils Percent Auto 59.9 % (50-75); Platelet Count 315 X10^3/uL (150-400); Red Cell Distribution Width 13.3 % (11.6-14.8); White Blood Cell Count 7.2 X10^3/uL (4.5-11.0)
[2018-11-16 13:20] LABS: Alanine Aminotransferase 37 IU/L (9-52); Albumin 4.1 g/dL (3.5-5.0); Albumin Globulin Ratio 1.4 (1.0-2.8); Alkaline Phosphatase 153 U/L (38-126); Aspartate Aminotransferase 23 IU/L (14-36); BUN Creatinine Ratio 18.7 (6-22); Bilirubin Total 0.6 mg/dL (0.2-1.3); Bilirubin Unconjugated 0.4 mg/dL (0.0-1.1); Blood Urea Nitrogen 28 mg/dL (7-17); Calcium 9.3 mg/dL (8.4-10.2); Carbon Dioxide 26 mmol/L (22-32); Chloride 103 mmol/L (98-107); Estimated Glomerular Filt Rate 33.9 mL/min (>60); Globulin 2.9 g/dL (1.7-4.1); Glucose 76 mg/dL (80-110); HEMOLYSIS < 15 (0-50); Potassium 5.8 mmol/L (3.4-5.1); Sodium 139 mmol/L (137-145)
[2018-11-16 13:34] LABS: Free T3, Triiodothyronine Free 3.15 pg/mL (2.77-5.27); Free T4, Direct Thyroxine 1.09 ng/dL (0.78-2.19)
[2018-11-16 13:48] LABS: Thyroid Stimulating Hormone 1.04 uIU/mL (0.47-4.68)
[2018-11-16 14:27] LABS: Creatinine Urine Random 24.9 mg/dL; Protein (Total) Urine Random 24 mg/dL (0-12); Protein Creatinine Ratio Urine 0.96 GRAM/24H
[2018-11-20 13:46] LABS: Parathyroid Hormone Int 213 pg/mL (14-64)
== END ==
PROVIDERS: PCP Family Medicine; Visit Provider Student in an Organized Health Care Education/Training Program
DX: E05.90 Thyrotoxicosis, unspecified without thyrotoxic crisis or storm (principal); N05.9 Unspecified nephritic syndrome with unspecified morphologic changes; D64.9 Anemia, unspecified; N25.81 Secondary hyperparathyroidism of renal origin; R80.9 Proteinuria, unspecified
CPT/HCPCS: 36415; 80048; 80076; 82570; 83970; 84156; 84439; 84443; 84481; 85025

== ENCOUNTER → 2018-12-03 10:27 | Outpatient (CLI) | payer MEDICARE, SELFPAY ==
[2018-12-03 12:08] LABS: HEMOLYSIS < 15 (0-50)
[2018-12-03 12:26] LABS: Potassium 5.7 mmol/L (3.4-5.1)
== END ==
PROVIDERS: PCP Family Medicine; Visit Provider Student in an Organized Health Care Education/Training Program
DX: E87.5 Hyperkalemia (principal)
CPT/HCPCS: 36415; 84132

== ENCOUNTER → 2018-12-24 09:45 | Outpatient (CLI) | payer MEDICARE, SELFPAY ==
[2018-12-24 11:07] LABS: HEMOLYSIS < 15 (0-50); Potassium 5.1 mmol/L (3.4-5.1)
== END ==
PROVIDERS: PCP Family Medicine; Visit Provider Student in an Organized Health Care Education/Training Program
DX: E87.5 Hyperkalemia (principal)
CPT/HCPCS: 36415; 84132

== ENCOUNTER → 2019-01-14 09:20 | Outpatient (CLI) | payer MEDICARE, SELFPAY ==
--- NOTE | 2019-01-14 | DI.RAD.S_ITS ---
PROCEDURE: XR CHEST 2V INDICATIONS: HISTORY OF RENAL CELL CARCINOMA TECHNIQUE: 2 views of the chest were acquired. COMPARISON: [facility], , XR CHEST 2V, 12/06/2017, 11:10. [facility], , CHEST 2 VIEW, 05/18/2017, 8:36. FINDINGS: Surgical changes and devices: None. Lungs and pleura: Lungs are abnormal with reduced inspiratory volume bilaterally and relative elevation of the right hemidiaphragm as has been previously the case. No pleural effusions or pneumothorax. Mediastinum: Mediastinal contours are normal. Heart size is normal. Bones and chest wall: No suspicious bony abnormalities. Soft tissues appear unremarkable. IMPRESSION: No metastatic disease associated with prior history of renal cell carcinoma is found. Chronic elevation of the right hemidiaphragm. Asymmetric reduced inspiratory volume on the right as a result with mild basilar atelectasis. Dictated by: James Yu M.D. on 01/14/2019 at 14:01 Approved by: James Yu M.D. on 01/14/2019 at 14:01
--- NOTE | 2019-01-14 | DI.US.S_ITS ---
PROCEDURE: US ABDOMEN COMPLETE INDICATIONS: HISTORY OF RENAL CELL CARCINOMA TECHNIQUE: Real-time scanning was performed of the abdominal and retroperitoneal organs, with image documentation. COMPARISON: [facility], US, US ABDOMEN COMPLETE, 06/29/2018, 13:12. [facility], US, ABDOMEN COMPLETE, 05/18/2017, 9:02. FINDINGS: Liver: Liver is normal in size and homogeneous in echotexture. Gallbladder: Previously resected Biliary ducts: Intrahepatic bile ducts are non-dilated. Extrahepatic bile duct caliber measures 5.8 mm. Normal is 6-7 mm or less in diameter, or 10 mm or less post-cholecystectomy. Pancreas: Visualized portions of the pancreas are sonographically normal. Spleen: Spleen is normal in size and homogeneous in echotexture. Kidneys: The right kidney measures 11.5 cm craniocaudad within cortex at 7.7 mm. The left kidney was surgically resected in 2014 for renal cell carcinoma. Aorta: Visualized aorta is normal in caliber at less than 3 cm. Iliacs: Proximal common iliac arteries are normal in caliber at less than 2.5 cm. IVC: Intrahepatic inferior vena cava is patent. Miscellaneous: No free abdominal fluid. IMPRESSION: Prior left nephrectomy, the right kidney shows renal cortical thinning with a craniocaudad length that is normal at 11.5 cm. No renal mass on the right is noted. Dictated by: James Yu M.D. on 01/14/2019 at 15:42 Approved by: James Yu M.D. on 01/14/2019 at 15:44
[2019-01-14 10:43] LABS: Alanine Aminotransferase 13 IU/L (9-52); Albumin 4.1 g/dL (3.5-5.0); Albumin Globulin Ratio 1.3 (1.0-2.8); Alkaline Phosphatase 146 U/L (38-126); Aspartate Aminotransferase 22 IU/L (14-36); BUN Creatinine Ratio 21.3 (6-22); Bilirubin Total 0.5 mg/dL (0.2-1.3); Blood Urea Nitrogen 32 mg/dL (7-17); Calcium 9.2 mg/dL (8.4-10.2); Carbon Dioxide 25 mmol/L (22-32); Chloride 104 mmol/L (98-107); Estimated Glomerular Filt Rate 33.8 mL/min (>60); Globulin 3.2 g/dL (1.7-4.1); Glucose 196 mg/dL (80-110); HEMOLYSIS 18 (0-50); Sodium 137 mmol/L (137-145); Total Protein 7.3 g/dL (6.3-8.2)
[2019-01-14 11:08] LABS: Creatinine Urine Random 157.6 mg/dL; Protein (Total) Urine Random 79 mg/dL (0-12)
== END ==
PROVIDERS: Family Provider Student in an Organized Health Care Education/Training Program; PCP Family Medicine; Visit Provider Urology
DX: N05.9 Unspecified nephritic syndrome with unspecified morphologic changes (principal); R80.9 Proteinuria, unspecified; N25.81 Secondary hyperparathyroidism of renal origin; Z85.528 Personal history of other malignant neoplasm of kidney
CPT/HCPCS: 36415; 71046; 76700; 80053; 82570; 83970; 84156

== ENCOUNTER → 2019-05-03 13:48 | Outpatient (CLI) | payer MEDICARE, SELFPAY ==
[2019-05-03 15:16] LABS: Hematocrit 41.7 % (36-46); Hemoglobin 14.4 g/dL (12.0-16.0)
[2019-05-03 15:34] LABS: Hemoglobin A1C% w Est Avg Glu 6.6 % (4.0-6.0)
[2019-05-03 15:40] LABS: Creatinine Urine Random 127.2 mg/dL; Protein (Total) Urine Random 82 mg/dL (0-12); Protein Creatinine Ratio Urine 0.64 GRAM/24H
[2019-05-03 15:44] LABS: BUN Creatinine Ratio 18.1 (6-22); Blood Urea Nitrogen 29 mg/dL (7-17); Calcium 9.3 mg/dL (8.4-10.2); Carbon Dioxide 23 mmol/L (22-32); Chloride 103 mmol/L (98-107); Estimated Glomerular Filt Rate 31.3 mL/min (>60); Glucose 72 mg/dL (80-110); HEMOLYSIS < 15 (0-50); Potassium 3.7 mmol/L (3.4-5.1); Sodium 138 mmol/L (137-145)
[2019-05-07 14:07] LABS: Parathyroid Hormone Int 66 pg/mL (14-64)
== END ==
PROVIDERS: PCP Family Medicine; Visit Provider Student in an Organized Health Care Education/Training Program
DX: E11.29 Type 2 diabetes mellitus with other diabetic kidney complication (principal); R80.9 Proteinuria, unspecified; N05.9 Unspecified nephritic syndrome with unspecified morphologic changes; D64.9 Anemia, unspecified; N25.81 Secondary hyperparathyroidism of renal origin
CPT/HCPCS: 36415; 80048; 82570; 83036; 83970; 84156; 85014; 85018

== ENCOUNTER → 2019-09-02 08:35 | Outpatient (CLI) | payer MEDICARE, SELFPAY ==
[2019-09-02 09:12] LABS: Hemoglobin 13.5 g/dL (12.0-16.0)
[2019-09-02 10:18] LABS: BUN Creatinine Ratio 15.5 (6-22); Blood Urea Nitrogen 24 mg/dL (7-17); Calcium 9.8 mg/dL (8.4-10.2); Carbon Dioxide 26 mmol/L (22-32); Chloride 103 mmol/L (98-107); Estimated Glomerular Filt Rate 32.5 mL/min (>60); Glucose 123 mg/dL (80-110); HEMOLYSIS < 15 (0-50); Potassium 4.7 mmol/L (3.4-5.1); Sodium 136 mmol/L (137-145)
[2019-09-03 06:42] LABS: Parathyroid Hormone Int 103 pg/mL (15-65)
== END ==
PROVIDERS: PCP Family Medicine; Referring Provider Student in an Organized Health Care Education/Training Program; Visit Provider Student in an Organized Health Care Education/Training Program
DX: N05.9 Unspecified nephritic syndrome with unspecified morphologic changes (principal); D64.9 Anemia, unspecified; N25.81 Secondary hyperparathyroidism of renal origin
CPT/HCPCS: 36415; 80048; 83970; 85014; 85018

== ENCOUNTER → 2020-01-28 10:31 | Outpatient (CLI) | payer MEDICARE, SELFPAY ==
[2020-01-28 12:06] LABS: Hematocrit 41.8 % (36-46); Hemoglobin 14.1 g/dL (12.0-16.0)
[2020-01-28 12:13] LABS: Add Manual Diff / Slide Review NO; Basophils Absolute Auto 100 /uL (0-100); Basophils Percent Auto 0.7 % (0-2); Eosinophils Absolute Auto 100 /uL (0-450); Eosinophils Percent Auto 1.6 % (2-4); Hemoglobin 13.9 g/dL (12.0-16.0); Lymphocytes Absolute Auto 1900 /uL (1100-4500); Lymphocytes Percent Auto 22.3 % (25-40); Mean Corpuscular Hemoglobin 29.7 PG (26-34); Mean Corpuscular Volume 87.6 fL (80-100); Monocytes Absolute Auto 500 /uL (0-900); Monocytes Percent Auto 6.2 % (3-14); Neutrophils Absolute Auto 6000 /uL (1500-7000); Neutrophils Percent Auto 69.2 % (50-75); Platelet Count 347 X10^3/uL (150-400); Red Blood Cell Count 4.68 X10^6/uL (4.0-5.2); Red Cell Distribution Width 12.8 % (11.6-14.8); White Blood Cell Count 8.7 X10^3/uL (4.5-11.0)
[2020-01-28 12:36] LABS: Protein (Total) Urine Random 47 mg/dL (0-12)
[2020-01-28 12:41] LABS: BUN Creatinine Ratio 20.8 (6-22); Blood Urea Nitrogen 32 mg/dL (7-17); Calcium 9.1 mg/dL (8.4-10.2); Carbon Dioxide 21 mmol/L (22-32); Chloride 104 mmol/L (98-107); Estimated Glomerular Filt Rate 32.7 mL/min (>60); Glucose 186 mg/dL (80-110); HEMOLYSIS < 15 (0-50); Potassium 4.2 mmol/L (3.4-5.1); Sodium 135 mmol/L (137-145)
[2020-01-28 12:47] LABS: Alanine Aminotransferase 15 IU/L (<35); Albumin 4.2 g/dL (3.5-5.0); Albumin Globulin Ratio 1.4 (1.0-2.8); Alkaline Phosphatase 127 U/L (38-126); Aspartate Aminotransferase 22 IU/L (14-36); BUN Creatinine Ratio 20.5 (6-22); Bilirubin Total 0.6 mg/dL (0.2-1.3); Blood Urea Nitrogen 32 mg/dL (7-17); Calcium 8.9 mg/dL (8.4-10.2); Carbon Dioxide 21 mmol/L (22-32); Chloride 103 mmol/L (98-107); Estimated Glomerular Filt Rate 32.2 mL/min (>60); Glucose 183 mg/dL (80-110); HEMOLYSIS < 15 (0-50); Potassium 4.2 mmol/L (3.4-5.1); Sodium 134 mmol/L (137-145); Total Protein 7.2 g/dL (6.3-8.2)
[2020-01-28 12:58] LABS: Free T4, Direct Thyroxine 1.26 ng/dL (0.78-2.19)
[2020-01-28 13:12] LABS: Thyroid Stimulating Hormone 1.85 uIU/mL (0.47-4.68)
[2020-01-28 18:20] LABS: Creatinine Urine Random 34.4 mg/dL; Protein Creatinine Ratio Urine 1.36 GRAM/24H
[2020-01-29 07:00] LABS: Triiodothyronine T3 Total 79 ng/dL (71-180)
[2020-01-29 07:00] LABS: Parathyroid Hormone Int 140 pg/mL (15-65)
== END ==
PROVIDERS: Student in an Organized Health Care Education/Training Program; PCP Family Medicine; Referring Provider Internal Medicine Endocrinology, Diabetes & Metabolism; Visit Provider Internal Medicine Endocrinology, Diabetes & Metabolism
DX: E05.90 Thyrotoxicosis, unspecified without thyrotoxic crisis or storm (principal); E04.2 Nontoxic multinodular goiter; R94.6 Abnormal results of thyroid function studies; N05.9 Unspecified nephritic syndrome with unspecified morphologic changes; D64.9 Anemia, unspecified; N25.81 Secondary hyperparathyroidism of renal origin; R80.9 Proteinuria, unspecified
CPT/HCPCS: 36415; 80048; 80053; 82570; 83970; 84156; 84439; 84443; 84480; 85014; 85018; 85025

== ENCOUNTER → 2020-04-07 07:03 | Outpatient (CLI) | payer MEDICARE, SELFPAY ==
[2020-04-07 08:43] LABS: BUN Creatinine Ratio 15.4 (6-22); Blood Urea Nitrogen 22 mg/dL (7-17); Calcium 9.1 mg/dL (8.4-10.2); Carbon Dioxide 25 mmol/L (22-32); Chloride 104 mmol/L (98-107); Estimated Glomerular Filt Rate 35.6 mL/min (>60); Glucose 136 mg/dL (80-110); HEMOLYSIS < 15 (0-50); Potassium 4.6 mmol/L (3.4-5.1); Sodium 135 mmol/L (137-145)
[2020-04-07 11:15] LABS: Creatinine Urine Random 44.6 mg/dL; Protein (Total) Urine Random 26 mg/dL (0-12); Protein Creatinine Ratio Urine 0.58 GRAM/24H
== END ==
PROVIDERS: PCP Family Medicine; Referring Provider Student in an Organized Health Care Education/Training Program; Visit Provider Student in an Organized Health Care Education/Training Program
DX: N05.9 Unspecified nephritic syndrome with unspecified morphologic changes (principal); E87.1 Hypo-osmolality and hyponatremia
CPT/HCPCS: 36415; 80048; 82570; 84156

== ENCOUNTER → 2020-04-15 09:29 | Outpatient (CLI) | payer MEDICARE, SELFPAY ==
--- NOTE | 2020-04-15 | DI.RAD.S_ITS ---
PROCEDURE: XR CHEST 2V INDICATIONS: FOLLOW-UP TECHNIQUE: 2 views of the chest were acquired. COMPARISON: [facility], CR, XR CHEST 2V, 01/14/2019, 11:27. FINDINGS: Surgical changes and devices: None. Lungs and pleura: Lungs are clear, aside from mild right perihilar scarring. No pleural effusions or pneumothorax. Chronic elevation of the right hemidiaphragm. Mediastinum: Mediastinal contours are normal. Heart size is normal. Bones and chest wall: Left 6th and 7th posterior lateral rib fractures redemonstrated. No suspicious bony abnormalities. Soft tissues appear unremarkable. IMPRESSION: 1. Chronic elevation the right hemidiaphragm and mild right perihilar scarring which is unchanged from prior examination. No acute or metastatic disease appreciated. Dictated by: Orlin HARRISON Interpreted: Zion De Leon MD on 04/15/2020 at 10:11 Approved by: Zion De Leon M.D. on 04/15/2020 at 12:43
--- NOTE | 2020-04-15 | DI.CT.S_ITS ---
PROCEDURE: CT ABDOMEN PELVIS WO CON INDICATIONS: C64.9 TECHNIQUE: Noncontrast 5 mm thick sections acquired from the diaphragms to the symphysis. 5 mm thick coronal and sagittal reformats were then performed. For radiation dose reduction, the following was used: automated exposure control, adjustment of mA and/or kV according to patient size. COMPARISON: [facility], CT, CT ABDOMEN PELVIS WO CON, 12/06/2017, 11:25. [facility], CT, ABDOMEN/PELVIS WITHOUT CONTRAS, 10/28/2016, 13:01. FINDINGS: Image quality: Excellent. Lung bases: Lung bases are clear. Heart size is normal. Urinary system: The right kidney is normal in size. No kidney stones. No hydronephrosis or perinephric fat stranding. The right ureter appears non-dilated throughout its expected course. Prior left nephrectomy. Bladder wall thickness is normal; no calcified bladder stones. Other solid organs: Liver is normal in size. Gallbladder is not seen . Pancreas is normal in contours. Spleen is normal in size. No adrenal nodules. Peritoneum and bowel: Unenhanced bowel loops demonstrate normal wall thickness and caliber. No free fluid or air. Nodes and vessels: No retroperitoneal or mesenteric adenopathy by size criteria. Aorta and inferior vena cava are normal in caliber. Abdominal wall: No ventral hernias. Pelvis: No free pelvic fluid. No inguinal hernias or adenopathy. Incidental note is made of several calcified small uterine fibroids. Bones: No suspicious bony lesions. No vertebral body compression fractures. IMPRESSION: Prior left nephrectomy. Noncontrast study, with this qualification no renal cortical mass is seen. Prior left nephrectomy, no renal cortical mass lesion is seen. Please note that noncontrast CT scanning may not detect a renal carcinoma until it has becomes significantly enlarged. It may be warranted to consider obtaining contrast-enhanced screening studies especially MR scanning with contrast. Noncontrast MR scanning would be preferred over noncontrast CT scanning for early detection of renal cell carcinoma if contrast enhancement for either modality would not be considered. Dictated by: James Yu M.D. on 04/15/2020 at 10:23 Approved by: James Yu M.D. on 04/15/2020 at 10:26
[2020-04-15 13:00] LABS: Hemoglobin A1C% w Est Avg Glu 8.4 % (4.0-6.0)
== END ==
PROVIDERS: PCP Family Medicine; Referring Provider Family Medicine; Visit Provider Family Medicine
DX: C64.9 Malignant neoplasm of unspecified kidney, except renal pelvis (principal); E11.21 Type 2 diabetes mellitus with diabetic nephropathy; D25.9 Leiomyoma of uterus, unspecified; Z90.5 Acquired absence of kidney
CPT/HCPCS: 36415; 71046; 74176; 76536; 83036

== ENCOUNTER → 2020-04-15 09:36 | Outpatient (CLI) | payer MEDICARE, SELFPAY ==
--- NOTE | 2020-04-15 | DI.US.S_ITS ---
PROCEDURE: US THYROID INDICATIONS: GOITER TECHNIQUE: Real-time scanning was performed of the thyroid gland, with image documentation. COMPARISON: [facility], US, US THYROID, 06/29/2018, 13:34. FINDINGS: Right: Thyroid lobe measures 4.5 x 1.8 x 1.6 cm, and is homogeneous in echotexture. Left: Thyroid lobe measures 7.9 x 3.4 x 4.8 cm, and is homogenous in echotexture. Isthmus: 6.0 mm thick. Nodule number: 1 Location: Right inferior Size: Stable 1.0 x 0.7 x 0.9 cm. Composition: Solid Echogenicity: Hypoechoic Shape: wider than tall. Margins: Smooth Echogenic foci: None Total points: 4 ACR TI-RADS category: Moderately suspicious Nodule number: 2 Location: Right inferior Size: Stable at 0.7 x 0.6 x 0.8 cm. Composition: Solid Echogenicity: Hypoechoic Shape: wider than tall. Margins: Smooth Echogenic foci: None Total points: 4 ACR TI-RADS category: Moderately suspicious Nodule number: 3 Location: Right superior Size: Stable at 0.5 x 0.2 x 0.4 cm. Composition: Solid Echogenicity: Hypoechoic Shape: wider than tall. Margins: Smooth Echogenic foci: None Total points: 4 ACR TI-RADS category: Moderately suspicious Nodule number: 4 Location: Left superior Size: Stable at 1.9 x 1.4 x 1.9 cm. Composition: Solid Echogenicity: Hypoechoic Shape: wider than tall. Margins: Smooth Echogenic foci: Small none Total points: 4 ACR TI-RADS category: Moderately suspicious Nodule number: 5 Location: Left inferior Size: Decreased at 4.6 x 3.1 x 4.8 cm Composition: Solid Echogenicity: Hypoechoic Shape: wider than tall. Margins: Smooth Echogenic foci: Small none Total points: 4 ACR TI-RADS category: Moderately suspicious Nodule number: 6 Location: Right isthmus Size: Stable at 0.7 x 0.5 x 0.8 Composition: Solid Echogenicity: Hypoechoic Shape: wider than tall. Margins: Smooth Echogenic foci: Small none Total points: 4 ACR TI-RADS category: Moderately suspicious IMPRESSION: Stable bilateral thyroid nodules. Recommend continued followup ultrasound as detailed below. ACR TI-RADS definitions and recommendations: TI-RADS 1 (benign): 0 points. FNA not needed. TI-RADS 2 (not suspicious): 2 points. FNA not needed. TI-RADS 3 (mildly suspicious): 3 points. * FNA if 2.5 cm or larger, follow up if 1.5 cm or larger (at 1, 3, and 5 years). TI-RADS 4 (moderately suspicious): 4-6 points. * FNA if 1.5 cm or larger, follow up if 1 cm or larger (at 1, 2, 3, and 5 years). TI-RADS 5 (highly suspicious): 7 points or more. * FNA if 1 cm or larger, follow up if 0.5 cm or larger (every year for 5 years). Dictated by: Orlin HARRISON Interpreted: Zion De Leon MD on 04/15/2020 at 11:38 Approved by: Zion De Leon M.D. on 04/15/2020 at 14:13
--- NOTE | 2020-04-15 | DI.MG.S_ITS ---
BILATERAL DIGITAL SCREENING MAMMOGRAM 3D/2D WITH CAD: 04/15/2020 CLINICAL: Routine screening. Comparison is made to exams dated: 06/29/2018 mammogram, 04/25/2017 mammogram, and 03/10/2016 mammogram - [facility]. There are scattered fibroglandular elements in both breasts. Current study was also evaluated with a Computer Aided Detection (CAD) system. There are benign calcifications in both breasts. There also are benign vascular calcifications in both breasts. No significant masses, calcifications, or other findings are seen in either breast. There has been no significant interval change. IMPRESSION: BENIGN There is no mammographic evidence of malignancy. A 1 year screening mammogram is recommended. This exam was interpreted at Station ID: [id number]. NOTE: For mammograms, a report in lay terms will be sent to the patient. Approximately 15% of breast malignancies will not be visualized mammographically. In the management of a palpable breast mass, a negative mammogram must not discourage biopsy of a clinically suspicious lesion. Electronically Signed By: Sonai gallardo/mike:04/21/2020 12:05:38 copy to: Mady Mak letter sent: Normal Exam ACR BI-RADS Category 2: Benign Finding(s) [id number]
== END ==
PROVIDERS: PCP Family Medicine; Referring Provider Internal Medicine; Visit Provider Internal Medicine
DX: Z12.31 Encounter for screening mammogram for malignant neoplasm of breast (principal); E04.2 Nontoxic multinodular goiter
CPT/HCPCS: 76536; 77063; 77067

== ENCOUNTER → 2020-09-07 10:52 | Outpatient (CLI) | payer MEDICARE, SELFPAY ==
[2020-09-07 11:49] LABS: Hematocrit 38.8 % (36-46); Hemoglobin 13.1 g/dL (12.0-16.0)
[2020-09-07 12:26] LABS: BUN Creatinine Ratio 20.7 (6-22); Blood Urea Nitrogen 29 mg/dL (7-17); Calcium 9.4 mg/dL (8.4-10.2); Carbon Dioxide 23 mmol/L (22-32); Chloride 103 mmol/L (98-107); Estimated Glomerular Filt Rate 36.5 mL/min (>60); Glucose 148 mg/dL (80-110); HEMOLYSIS < 15 (0-50); Potassium 4.9 mmol/L (3.4-5.1); Sodium 135 mmol/L (137-145)
[2020-09-07 15:59] LABS: Creatinine Urine Random 60.3 mg/dL; Protein (Total) Urine Random 41 mg/dL (0-12); Protein Creatinine Ratio Urine 0.67 GRAM/24H
[2020-09-08 07:41] LABS: Parathyroid Hormone Int 126 pg/mL (15-65)
== END ==
PROVIDERS: PCP Family Medicine; Referring Provider Student in an Organized Health Care Education/Training Program; Visit Provider Student in an Organized Health Care Education/Training Program
DX: N05.9 Unspecified nephritic syndrome with unspecified morphologic changes (principal); R80.9 Proteinuria, unspecified; N25.81 Secondary hyperparathyroidism of renal origin; D64.9 Anemia, unspecified
CPT/HCPCS: 36415; 80048; 82570; 83970; 84156; 85014; 85018

== ENCOUNTER → 2021-01-06 11:44 | Outpatient (CLI) | payer MEDICARE, SELFPAY ==
[2021-01-06 12:43] LABS: Hemoglobin A1C% w Est Avg Glu 7.3 % (4.0-6.0)
== END ==
PROVIDERS: PCP Family Medicine; Referring Provider Family Medicine; Visit Provider Family Medicine
DX: E11.21 Type 2 diabetes mellitus with diabetic nephropathy (principal)
CPT/HCPCS: 36415; 83036

== ENCOUNTER → 2021-01-18 08:16 | Outpatient (CLI) | payer MEDICARE, SELFPAY ==
[2021-01-18 09:02] LABS: Hematocrit 38.3 % (36-46); Hemoglobin 12.9 g/dL (12.0-16.0)
[2021-01-18 09:37] LABS: BUN Creatinine Ratio 16.1 (6-22); Blood Urea Nitrogen 26 mg/dL (7-17); Calcium 9.4 mg/dL (8.4-10.2); Carbon Dioxide 19 mmol/L (22-32); Chloride 103 mmol/L (98-107); Glucose 175 mg/dL (80-110); HEMOLYSIS < 15 (0-50); Potassium 5.3 mmol/L (3.4-5.1); Sodium 133 mmol/L (137-145)
[2021-01-18 10:14] LABS: Creatinine Urine Random 127.9 mg/dL; Protein (Total) Urine Random 42 mg/dL (0-12); Protein Creatinine Ratio Urine 0.32 GRAM/24H
[2021-01-19 09:20] LABS: Parathyroid Hormone Int 151 pg/mL (15-65)
== END ==
PROVIDERS: PCP Family Medicine; Referring Provider Student in an Organized Health Care Education/Training Program; Visit Provider Student in an Organized Health Care Education/Training Program
DX: N05.9 Unspecified nephritic syndrome with unspecified morphologic changes (principal); D64.9 Anemia, unspecified; N25.81 Secondary hyperparathyroidism of renal origin; R80.9 Proteinuria, unspecified
CPT/HCPCS: 36415; 80048; 82570; 83970; 84156; 85014; 85018

== ENCOUNTER → 2021-02-08 12:39 | Outpatient (CLI) | payer MEDICARE, SELFPAY ==
[2021-02-08 14:57] LABS: BUN Creatinine Ratio 15.3 (6-22); Blood Urea Nitrogen 24 mg/dL (7-17); Calcium 9.3 mg/dL (8.4-10.2); Carbon Dioxide 26 mmol/L (22-32); Chloride 105 mmol/L (98-107); Estimated Glomerular Filt Rate 31.9 mL/min (>60); Glucose 208 mg/dL (80-110); HEMOLYSIS < 15 (0-50); Sodium 139 mmol/L (137-145)
== END ==
PROVIDERS: PCP Family Medicine; Referring Provider Student in an Organized Health Care Education/Training Program; Visit Provider Student in an Organized Health Care Education/Training Program
DX: N05.9 Unspecified nephritic syndrome with unspecified morphologic changes (principal)
CPT/HCPCS: 36415; 80048

== ENCOUNTER → 2021-03-25 09:24 | Outpatient (CLI) | payer MEDICARE, SELFPAY ==
[2021-03-25 11:12] LABS: Add Manual Diff / Slide Review NO; Alanine Aminotransferase 17 IU/L (<35); Albumin 3.9 g/dL (3.5-5.0); Albumin Globulin Ratio 1.4 (1.0-2.8); Alkaline Phosphatase 87 U/L (38-126); Aspartate Aminotransferase 23 IU/L (14-36); BUN Creatinine Ratio 13.9 (6-22); Basophils Absolute Auto 0 /uL (0-100); Basophils Percent Auto 0.6 % (0-2); Bilirubin Total 0.4 mg/dL (0.2-1.3); Blood Urea Nitrogen 23 mg/dL (7-17); Calcium 8.6 mg/dL (8.4-10.2); Carbon Dioxide 24 mmol/L (22-32); Chloride 105 mmol/L (98-107); Eosinophils Absolute Auto 100 /uL (0-450); Estimated Glomerular Filt Rate 30.1 mL/min (>60); Globulin 2.8 g/dL (1.7-4.1); Glucose 151 mg/dL (80-110); HEMOLYSIS < 15 (0-50); Hematocrit 37.6 % (36-46); Hemoglobin 12.7 g/dL (12.0-16.0); Lymphocytes Absolute Auto 1700 /uL (1100-4500); Lymphocytes Percent Auto 24.6 % (25-40); Mean Corpuscular HGB Conc 33.6 % (30-36); Mean Corpuscular Hemoglobin 29.3 PG (26-34); Mean Corpuscular Volume 87.1 fL (80-100); Monocytes Absolute Auto 500 /uL (0-900); Monocytes Percent Auto 7.1 % (3-14); Neutrophils Absolute Auto 4400 /uL (1500-7000); Neutrophils Percent Auto 65.7 % (50-75); Platelet Count 342 X10^3/uL (150-400); Potassium 4.2 mmol/L (3.4-5.1); Red Blood Cell Count 4.32 X10^6/uL (4.0-5.2); Red Cell Distribution Width 13.5 % (11.6-14.8); Sodium 137 mmol/L (137-145); Total Protein 6.7 g/dL (6.3-8.2); White Blood Cell Count 6.7 X10^3/uL (4.5-11.0)
[2021-03-25 11:19] LABS: Free T3, Triiodothyronine Free 3.09 pg/mL (2.77-5.27); Free T4, Direct Thyroxine 1.37 ng/dL (0.78-2.19)
[2021-03-25 11:33] LABS: Thyroid Stimulating Hormone 1.27 uIU/mL (0.47-4.68)
== END ==
PROVIDERS: PCP Family Medicine; Referring Provider Internal Medicine Endocrinology, Diabetes & Metabolism; Visit Provider Internal Medicine Endocrinology, Diabetes & Metabolism
DX: E04.2 Nontoxic multinodular goiter (principal); E05.90 Thyrotoxicosis, unspecified without thyrotoxic crisis or storm
CPT/HCPCS: 36415; 80053; 84439; 84443; 84481; 85025

== ENCOUNTER → 2021-05-26 11:38 | Outpatient (CLI) | payer MEDICARE, SELFPAY ==
--- NOTE | 2021-05-26 | DI.RAD.S_ITS ---
PROCEDURE: XR CHEST 2V INDICATIONS: RENAL CA FOLLOW UP TECHNIQUE: 2 views of the chest were acquired. COMPARISON: [facility], CR, XR CHEST 2V, 01/14/2019, 11:27. [facility], CR, XR CHEST 2V, 04/15/2020, 9:38. FINDINGS: Surgical changes and devices: None. Lungs and pleura: Lungs are clear, aside from right perihilar scarring which is unchanged. No pleural effusions or pneumothorax. Chronic elevation right hemidiaphragm. Mediastinum: Mediastinal contours are unchanged. Heart size is normal. Bones and chest wall: Healed left 6th and 7th posterior lateral rib fractures redemonstrated. No suspicious bony abnormalities. Soft tissues appear unremarkable. IMPRESSION: Stable chest compared to 04/15/2020. Dictated by: Orlin Castro Kenan Interpreted: Ricardo Lozoya MD on 05/26/2021 at 12:03 Transcribed by: SHALOM on 05/26/2021 at 12:05 Approved by: Ricardo Lozoya M.D. on 05/26/2021 at 20:08
--- NOTE | 2021-05-26 | DI.CT.S_ITS ---
PROCEDURE: CT ABDOMEN PELVIS WO CON INDICATIONS: 80-year-old female with history of renal carcinoma and left nephrectomy, surveillance TECHNIQUE: After the administration of oral contrast, 5 mm thick sections acquired from the diaphragms to the symphysis. 5 mm coronal and sagittal reformats were performed. For radiation dose reduction, the following was used: automated exposure control, adjustment of mA and/or kV according to patient size. COMPARISON: [facility], CT, CT ABDOMEN PELVIS WO CON, 04/15/2020, 9:44. FINDINGS: Lower thorax: The lung bases are clear. Heart size normal. No hiatal hernia. Dense coronary artery vascular calcifications present. Liver: Normal in size and attenuation. No contour deformity present. Biliary system: Cholecystectomy. No intra or extrahepatic bile duct dilatation. Pancreas: Unremarkable without mass or inflammation evident. Spleen: Normal in size and density. Calcified splenic granulomas noted. Adrenals: Normal morphology and density. Reproductive system: Calcified uterine fibroids noted Urinary system: Left nephrectomy. Right noncontrast kidney is unremarkable. No hydronephrosis or calculi. Gastrointestinal system: The bowel is unremarkable without evidence of bowel obstruction or inflammation. The stomach appears unremarkable. Appendix: No findings to suggest acute appendicitis. Peritoneal spaces: No mesenteric or retroperitoneal adenopathy. No free air. No free fluid. Vasculature: Aortic atherosclerotic vascular calcification noted without evidence of aneurysm. Abdominal wall: Abdominal wall intact without evidence of ventral or inguinal hernias. Musculoskeletal: Normal bone mineralization. Degenerative disc disease and arthropathy noted in lower lumbar spine. No acute fractures. IMPRESSION: 1. Stable noncontrast CT of the abdomen and pelvis status post left nephrectomy. 2. Chronic findings include diffuse atherosclerotic vascular calcification, calcified uterine fibroids, splenic granulomas and degenerative disc disease Approved by: Alfonso Jacome M.D. on 05/26/2021 at 13:47
== END ==
PROVIDERS: PCP Family Medicine; Referring Provider Family Medicine; Visit Provider Family Medicine
DX: Z08 Encounter for follow-up examination after completed treatment for malignant neoplasm (principal); Z85.528 Personal history of other malignant neoplasm of kidney; Z90.5 Acquired absence of kidney; I70.0 Atherosclerosis of aorta; D25.9 Leiomyoma of uterus, unspecified; M51.36 Other intervertebral disc degeneration, lumbar region; M47.816 Spondylosis without myelopathy or radiculopathy, lumbar region
CPT/HCPCS: 71046; 74176

== ENCOUNTER → 2021-11-04 11:34 | Outpatient (CLI) | payer MEDICARE, SELFPAY ==
[2021-11-04 12:57] LABS: BUN Creatinine Ratio 15.1 (6-22); Blood Urea Nitrogen 24 mg/dL (7-17); Calcium 8.8 mg/dL (8.4-10.2); Carbon Dioxide 26 mmol/L (22-32); Chloride 103 mmol/L (98-107); Estimated Glomerular Filt Rate 33 mL/min (>60); Glucose 128 mg/dL (80-110); HEMOLYSIS < 15 (0-50); Potassium 4.4 mmol/L (3.4-5.1); Sodium 136 mmol/L (137-145)
[2021-11-04 12:59] LABS: Hematocrit 36.7 % (36-46); Hemoglobin 12.6 g/dL (12.0-16.0)
[2021-11-04 16:32] LABS: Creatinine Urine Random 68.2 mg/dL; Protein (Total) Urine Random 48 mg/dL (0-12)
[2021-11-05 06:22] LABS: Parathyroid Hormone Int 103 pg/mL (15-65)
== END ==
PROVIDERS: PCP Family Medicine; Referring Provider Student in an Organized Health Care Education/Training Program; Visit Provider Student in an Organized Health Care Education/Training Program
DX: N05.9 Unspecified nephritic syndrome with unspecified morphologic changes (principal); D64.9 Anemia, unspecified; N25.81 Secondary hyperparathyroidism of renal origin; R80.9 Proteinuria, unspecified
CPT/HCPCS: 36415; 80048; 82570; 83970; 84156; 85014; 85018

== ENCOUNTER → 2021-12-30 11:24 | Outpatient (CLI) | payer MEDICARE, SELFPAY ==
--- NOTE | 2021-12-30 | DI.US.S_ITS ---
PROCEDURE: US THYROID INDICATIONS: THYROTOXICOSIS/GOITER. TECHNIQUE: Real-time scanning was performed of the thyroid gland, with image documentation. COMPARISON: [facility], US, US THYROID, 04/15/2020, 10:31. FINDINGS: Right: Thyroid lobe measures 5 x 2.3 x 2.1 cm, and is heterogeneous in echotexture. Left: Thyroid lobe measures 6 x 3.1 x 4.2 cm, and is heterogeneous in echotexture. Isthmus: 11 mm thick. Nodule number: 1 Location: Lower pole right thyroid lobe Size: 1.2 x 1 x 1.1 cm in size, previously measures 1 x 0.7 x 0.9 cm. Composition: Solid Echogenicity: Hypoechoic Shape: Wider than tall Margins: Smoothly Echogenic foci: None Total points: 4 ACR TI-RADS category: Moderately suspicious. Nodule number: 2 Location: Mid to lower pole right thyroid lobe Size: 0.7 x 0.7 x 0.9 cm in size, previously measures 0.7 x 0.6 x 0.8 cm. Composition: Solid Echogenicity: Hypoechoic Shape: Wider than tall Margins: Smoothly Echogenic foci: None Total points: 4 ACR TI-RADS category: Moderately suspicious. Nodule number: 3 Location: Upper pole right thyroid lobe Size: 0.6 x 0.3 x 0.6 cm in size, previously measures 0.4 x 0.5 x 0.3 cm. Composition: Solid Echogenicity: Hypoechoic Shape: Wider than tall Margins: Smoothly Echogenic foci: None Total points: 4 ACR TI-RADS category: Moderately suspicious. Nodule number: 4 Location: Upper pole of left thyroid lobe Size: 2.8 x 1.3 x 2.8 cm in size, previously measures 1.9 x 1.4 x 1.9 cm. Composition: Solid Echogenicity: Hypoechoic Shape: Wider than tall Margins: Ill-defined Echogenic foci: None Total points: 4 ACR TI-RADS category: Moderately suspicious. Nodule number: 5 Location: Lower pole left thyroid lobe Size: 4.7 x 3.2 x 3.4 cm in size, previously measures 4.6 x 3.1 x 4.0 cm. Composition: Solid Echogenicity: Hypoechoic Shape: Wider than tall Margins: Ill-defined Echogenic foci: None Total points: 4 ACR TI-RADS category: Moderately suspicious. Nodule number: 6 Location: Isthmus Size: 0.9 x 0.9 x 0.6 in size, previously measures 0.7 x 0.5 x 0.8 cm. Composition: Solid Echogenicity: Hypoechoic Shape: Wider than tall Margins: Smooth+ Echogenic foci: None Total points: 4 ACR TI-RADS category: Moderately suspicious. IMPRESSION: 1. Enlarged thyroid gland with multiple bilateral thyroid nodules unchanged or slightly increased in size compared to prior study. Consider fine-needle aspiration of left thyroid lobe nodules (4 and 5) based on the size if no prior biopsy was done. ACR TI-RADS definitions and recommendations: TI-RADS 1 (benign): 0 points. FNA not needed. TI-RADS 2 (not suspicious): 2 points. FNA not needed. TI-RADS 3 (mildly suspicious): 3 points. * FNA if 2.5 cm or larger, follow up if 1.5 cm or larger (at 1, 3, and 5 years). TI-RADS 4 (moderately suspicious): 4-6 points. * FNA if 1.5 cm or larger, follow up if 1 cm or larger (at 1, 2, 3, and 5 years). TI-RADS 5 (highly suspicious): 7 points or more. * FNA if 1 cm or larger, follow up if 0.5 cm or larger (every year for 5 years). Dictated by: Edi Chicas M.D. on 12/30/2021 at 13:36 Approved by: Edi Chicas M.D. on 12/30/2021 at 13:49
== END ==
PROVIDERS: PCP Family Medicine; Referring Provider Internal Medicine Endocrinology, Diabetes & Metabolism; Visit Provider Internal Medicine Endocrinology, Diabetes & Metabolism
DX: E05.90 Thyrotoxicosis, unspecified without thyrotoxic crisis or storm (principal); Z13.820 Encounter for screening for osteoporosis; E04.2 Nontoxic multinodular goiter; M81.0 Age-related osteoporosis without current pathological fracture; Z78.0 Asymptomatic menopausal state; Z85.528 Personal history of other malignant neoplasm of kidney
CPT/HCPCS: 76536; 77080

== ENCOUNTER → 2022-01-05 09:18 | Outpatient (CLI) | payer MEDICARE, SELFPAY ==
--- NOTE | 2022-01-05 | DI.US.S_ITS ---
PROCEDURE: US FINE NEEDLE ASPIRATION INDICATIONS: LEFT THYROID NODULE TECHNIQUE: The indications, alternatives, benefits, risks, and complications of the procedure were explained to the patient. Written informed consent was obtained and placed in the chart. The thyroid region was examined sonographically and a site was chosen for ultrasound guided percutaneous sampling. The skin was prepared and draped in the usual fashion, and anesthetized with 1% lidocaine infiltrated from the skin down to the thyroid gland. Multiple passes were then performed, with contents emptied into an appropriate pathology specimen container. A bandage was applied to the area of access at completion of the study. COMPARISON: [facility], US, US THYROID, 12/30/2021, 11:43. FINDINGS: Location(s) of lesion(s) sampled: Left lobe, superior (nodule #4.) [place]: 25 gauge hypodermic needles. Number of passes: 6 Medications: 1% lidocaine for local anaesthesia. Complications: None. IMPRESSION: Successful ultrasound-guided thyroid nodule fine needle aspiration, with cytology results pending. Please see chart below for management recommendations based on cytology results. [place] [facility] ReportingRecommendationsNon-diagnostic* Repeat US-guided FNA, with on-site cytology evaluation if possible. * Repeated non-diagnostic nodules without high suspicion US features: close observation vs surgical consult. * Consider surgery if nodule has high suspicion US features, grows >20% in 2 dimensions on followup, or patient has clinical risk factors for malignancy. Benign* If nodule has high suspicion US features: repeat US and FNA within 12 months. * If nodule has low to intermediate suspicion US features: repeat US at 12-24 months. If nodule grows (20% increase in at least 2 dimensions, with minimal increase of 2 mm or >50% change in volume), or development of new suspicious US features, then repeat FNA or continue followup. * If nodule has very low suspicion US features: followup US at >24 months. Atypia of undetermined significance, follicular lesion of undetermined significanceRepeat FNA, molecular testing, followup US, or surgical consult.Follicular neoplasm, suspicious for follicular neoplasmSurgical consult; also consider molecular testing. Suspicious for malignancySurgical consult.MalignantSurgical consult. Dictated by: Zion Benavidez M.D. on 01/05/2022 at 11:13 Approved by: Zion Benavidez M.D. on 01/05/2022 at 11:16
--- NOTE | 2022-01-05 | PATH_ITS ---
Note [facility] Accession Number: [id number] TESTS RESULT FLAG UNITS REF RANGE LAB Clinician Provided Cytology Information No. of containers..02 Previously Prepared Cytology Slide 35 Unknown Storage/container code(s) Source: LEFT THYROID NODULE DIAGNOSIS: LEFT THYROID NODULE INCONCLUSIVE. BETHESDA CATEGORY III. ATYPIA OF UNDETERMINED SIGNIFICANCE. MOLECULAR STUDIES ARE REQUESTED ON THE RNA VIAL. Pathologist ICD10: R89.6 Signed out by: Genet Duncan MD, Pathologist NPI- [id number] Performed by: Peewee Schmitt, Cat Scanner Operator ([facility]) Gross description: 30 CC, PINK, CLEAR RECIEVED: IN CYTOLYT WITH 6 ALCOHOL FIXED AND 6 QUICK STAINED SLIDES ALSO 1 RNA VIAL WAS RECEIVED. /VDU 01/06/[address] [place] [address] FLAG LEGEND: L-Low Normal,H-High Normal,LL-Alert Low,HH-Alert High <-Panic Low,>-Panic High,A-Abnormal,AA-Critical Abnormal Performed at: 01 =Z [facility] [address], [place] [address] Valentino Maki MD, Performed at: 01 [facility] [address], [place], [place] [id number] MD Valentino Maki MD Phone: [phone]
== END ==
PROVIDERS: PCP Family Medicine; Referring Provider Internal Medicine Endocrinology, Diabetes & Metabolism; Visit Provider Internal Medicine Endocrinology, Diabetes & Metabolism
DX: E04.1 Nontoxic single thyroid nodule (principal)
CPT/HCPCS: 10005

== ENCOUNTER → 2022-04-07 09:05 | Outpatient (CLI) | payer MEDICARE, SELFPAY ==
[2022-04-07 10:31] LABS: Hemoglobin A1C% w Est Avg Glu 8.1 % (4.0-6.0)
[2022-04-07 10:44] LABS: Add Manual Diff / Slide Review NO; Basophils Absolute Auto 0 /uL (0-100); Basophils Percent Auto 0.5 % (0-2); Eosinophils Absolute Auto 100 /uL (0-450); Eosinophils Percent Auto 1.4 % (2-4); Hematocrit 38.3 % (36-46); Hemoglobin 12.8 g/dL (12.0-16.0); Lymphocytes Absolute Auto 1800 /uL (1100-4500); Lymphocytes Percent Auto 23.1 % (25-40); Mean Corpuscular HGB Conc 33.4 % (30-36); Mean Corpuscular Hemoglobin 29.1 PG (26-34); Mean Corpuscular Volume 87.1 fL (80-100); Monocytes Absolute Auto 500 /uL (0-900); Monocytes Percent Auto 6.9 % (3-14); Neutrophils Absolute Auto 5300 /uL (1500-7000); Neutrophils Percent Auto 68.1 % (50-75); Platelet Count 314 X10^3/uL (150-400); Red Blood Cell Count 4.39 X10^6/uL (4.0-5.2); Red Cell Distribution Width 13.8 % (11.6-14.8); White Blood Cell Count 7.8 X10^3/uL (4.5-11.0)
[2022-04-07 10:47] LABS: Alanine Aminotransferase 25 IU/L (<35); Albumin 4.2 g/dL (3.5-5.0); Albumin Globulin Ratio 1.4 (1.0-2.8); Alkaline Phosphatase 117 U/L (38-126); Aspartate Aminotransferase 25 IU/L (14-36); BUN Creatinine Ratio 19.6 (6-22); Bilirubin Total 0.6 mg/dL (0.2-1.3); Blood Urea Nitrogen 30 mg/dL (7-17); Calcium 8.8 mg/dL (8.4-10.2); Carbon Dioxide 21 mmol/L (22-32); Chloride 105 mmol/L (98-107); Cholesterol 135 mg/dL (140-199); Estimated Glomerular Filt Rate 34 mL/min (>60); Globulin 2.9 g/dL (1.7-4.1); Glucose 84 mg/dL (80-110); HDL Cholesterol 57 mg/dL (40-60); LDL Cholesterol Calculated 57 mg/dL (<100); Potassium 4.6 mmol/L (3.4-5.1); Sodium 139 mmol/L (137-145); Total Protein 7.1 g/dL (6.3-8.2); Triglycerides 107 mg/dL (35-150)
[2022-04-07 10:56] LABS: Free T3, Triiodothyronine Free 2.57 pg/mL (2.77-5.27); Free T4, Direct Thyroxine 1.26 ng/dL (0.78-2.19)
[2022-04-07 11:09] LABS: Thyroid Stimulating Hormone 2.02 uIU/mL (0.47-4.68)
[2022-04-07 11:20] LABS: Vitamin D 25 Hydroxy (D3) 39.7 ng/mL (30.0-100.0)
[2022-04-07 11:38] LABS: HEMOLYSIS < 15 (0-50); Vitamin B12 424 pg/mL (239-931)
== END ==
PROVIDERS: PCP Family Medicine; Referring Provider Internal Medicine Endocrinology, Diabetes & Metabolism; Visit Provider Internal Medicine Endocrinology, Diabetes & Metabolism
DX: E11.21 Type 2 diabetes mellitus with diabetic nephropathy (principal); N18.30 Chronic kidney disease, stage 3 unspecified; E05.90 Thyrotoxicosis, unspecified without thyrotoxic crisis or storm; M47.816 Spondylosis without myelopathy or radiculopathy, lumbar region; Z85.520 Personal history of malignant carcinoid tumor of kidney; D50.9 Iron deficiency anemia, unspecified; E53.8 Deficiency of other specified B group vitamins; M81.0 Age-related osteoporosis without current pathological fracture; E04.2 Nontoxic multinodular goiter
CPT/HCPCS: 36415; 80053; 80061; 82306; 82607; 83036; 84439; 84443; 84481; 85025

== ENCOUNTER → 2022-04-18 13:21 | Outpatient (CLI) | payer MEDICARE, SELFPAY ==
[2022-04-18 14:13] LABS: Hematocrit 39.7 % (36-46); Hemoglobin 13.2 g/dL (12.0-16.0)
[2022-04-18 14:29] LABS: BUN Creatinine Ratio 17.1 (6-22); Blood Urea Nitrogen 27 mg/dL (7-17); Calcium 7.9 mg/dL (8.4-10.2); Carbon Dioxide 22 mmol/L (22-32); Chloride 104 mmol/L (98-107); Estimated Glomerular Filt Rate 33 mL/min (>60); Glucose 164 mg/dL (80-110); HEMOLYSIS < 15 (0-50); Sodium 137 mmol/L (137-145)
[2022-04-18 15:19] LABS: Creatinine Urine Random 190.8 mg/dL; Protein (Total) Urine Random 166 mg/dL (0-12); Protein Creatinine Ratio Urine 0.87 GRAM/24H
[2022-04-20 07:53] LABS: Parathyroid Hormone Int 328 pg/mL (15-65)
== END ==
PROVIDERS: PCP Family Medicine; Referring Provider Student in an Organized Health Care Education/Training Program; Visit Provider Student in an Organized Health Care Education/Training Program
DX: N05.9 Unspecified nephritic syndrome with unspecified morphologic changes (principal); D64.9 Anemia, unspecified; N25.81 Secondary hyperparathyroidism of renal origin; R80.9 Proteinuria, unspecified
CPT/HCPCS: 36415; 80048; 82570; 83970; 84156; 85014; 85018

== ENCOUNTER → 2022-05-02 10:56 | Outpatient (CLI) | payer MEDICARE, SELFPAY ==
--- NOTE | 2022-05-02 | DI.RAD.S_ITS ---
PROCEDURE: XR CHEST 2V INDICATIONS: KIDNEY CANCER TECHNIQUE: 2 views of the chest were acquired. COMPARISON: [facility], CR, XR CHEST 2V, 05/26/2021, 11:34. FINDINGS: Surgical changes and devices: None. Lungs and pleura: Lungs are clear. No pleural effusions or pneumothorax. Elevated right hemidiaphragm Mediastinum: Mediastinal contours are normal. Heart size is normal. Atherosclerotic vascular calcification noted in the aortic arch. Bones and chest wall: Old healed left-sided rib fractures noted IMPRESSION: No acute cardiopulmonary findings Approved by: Alfonso Jacome M.D. on 05/02/2022 at 13:44
== END ==
PROVIDERS: PCP Family Medicine; Referring Provider Family Medicine; Visit Provider Family Medicine
DX: Z85.528 Personal history of other malignant neoplasm of kidney (principal); Z08 Encounter for follow-up examination after completed treatment for malignant neoplasm
CPT/HCPCS: 71046

== ENCOUNTER → 2022-05-09 08:47 | Outpatient (CLI) | payer MEDICARE, SELFPAY ==
--- NOTE | 2022-05-09 | DI.CT.S_ITS ---
PROCEDURE: CT ABDOMEN PELVIS WO CON INDICATIONS: KIDNEY CANCER TECHNIQUE: After the administration of oral contrast, 5 mm thick sections acquired from the diaphragms to the symphysis. 5 mm coronal and sagittal reformats were performed. For radiation dose reduction, the following was used: automated exposure control, adjustment of mA and/or kV according to patient size. COMPARISON: , CT, CT ABDOMEN PELVIS WO [facility], 12/06/2017, 11:25. , CT, CT ABDOMEN PELVIS WO [facility], 05/26/2021, 11:50. FINDINGS: Image quality: Excellent. ABDOMEN: Lung bases: Lung bases are clear. Heart size is normal. Solid organs: Liver is normal in size. Gallbladder is not visualized and may be surgically absent. Radiodense foci are redemonstrated within the right hepatic biliary tree unchanged from the study dated May 26, 2021 and the study dated Pancreas is normal in size. Spleen is normal in size. No adrenal nodules. The right kidney is normal in size. No hydronephrosis, nephrolithiasis, hydroureter, or ureterolithiasis. The left kidney is surgically absent. No suspicious soft tissue lesions within the surgical bed. Peritoneum and bowel: Bowel loops demonstrate normal wall thickness and caliber. No free fluid or air. Nodes and vessels: No retroperitoneal or mesenteric adenopathy by size criteria. Aorta and inferior vena cava are normal in size. There are scattered atheromatous calcifications throughout the aorta and iliac arteries bilaterally. Miscellaneous: No ventral hernias. PELVIS: Genitourinary: Bladder wall thickness is normal. Calcifications are redemonstrated within the uterus. Miscellaneous: No inguinal hernias or adenopathy. Bones: No suspicious bony lesions. No vertebral body compression fractures. IMPRESSION: 1. No acute intra-abdominal findings. 2. No findings to suggest tumor recurrence or new metastasis on this noncontrast study. Dictated by: Sonia Mcnally M.D. on 05/09/2022 at 10:35 Approved by: Sonia Mcnally M.D. on 05/09/2022 at 10:41
== END ==
PROVIDERS: PCP Family Medicine; Referring Provider Family Medicine; Visit Provider Family Medicine
DX: C64.9 Malignant neoplasm of unspecified kidney, except renal pelvis (principal); Z90.5 Acquired absence of kidney
CPT/HCPCS: 74176

== ENCOUNTER → 2022-10-06 10:53 | Outpatient (CLI) | payer MEDICARE, SELFPAY ==
[2022-10-06 13:03] LABS: Alanine Aminotransferase 19 IU/L (<35); Albumin 4.2 g/dL (3.5-5.0); Albumin Globulin Ratio 1.3 (1.0-2.8); Alkaline Phosphatase 88 U/L (38-126); Aspartate Aminotransferase 24 IU/L (14-36); BUN Creatinine Ratio 17.1 (6-22); Bilirubin Total 0.8 mg/dL (0.2-1.3); Blood Urea Nitrogen 27 mg/dL (7-17); Carbon Dioxide 23 mmol/L (22-32); Chloride 102 mmol/L (98-107); Estimated Glomerular Filt Rate 33 mL/min (>60); Globulin 3.2 g/dL (1.7-4.1); Glucose 121 mg/dL (80-110); HEMOLYSIS 81 (0-50); Potassium 4.5 mmol/L (3.4-5.1); Sodium 137 mmol/L (137-145); Total Protein 7.4 g/dL (6.3-8.2)
[2022-10-06 13:14] LABS: Vitamin D 25 Hydroxy (D3) 40.8 ng/mL (30.0-100.0)
== END ==
PROVIDERS: PCP Family Medicine; Referring Provider Internal Medicine Endocrinology, Diabetes & Metabolism; Visit Provider Internal Medicine Endocrinology, Diabetes & Metabolism
DX: M81.0 Age-related osteoporosis without current pathological fracture (principal); Z51.81 Encounter for therapeutic drug level monitoring
CPT/HCPCS: 36415; 80053; 82306

== ENCOUNTER → 2022-11-26 09:55 | Outpatient (CLI) | payer MEDICARE, SELFPAY ==
--- NOTE | 2022-11-26 09:56 | DI.MG.S_ITS ---
BILATERAL DIGITAL SCREENING MAMMOGRAM 3D/2D WITH CAD: 11/26/2022 CLINICAL: Routine screening. Comparison is made to exams dated: 04/15/2020 mammogram, 06/29/2018 mammogram, and 04/25/2017 mammogram - [facility]. There are scattered areas of fibroglandular density in both breasts (category b / 25%-50% glandular tissue). Current study was also evaluated with a Computer Aided Detection (CAD) system. There are benign calcifications in both breasts. There also are benign vascular calcifications in both breasts. No significant masses, calcifications, or other findings are seen in either breast. There has been no significant interval change. IMPRESSION: BENIGN There is no mammographic evidence of malignancy. A 1 year screening mammogram is recommended. Based on the Tyrer Cuzick model (a risk assessment model) the patient's lifetime risk is 1.6% and her 10 year risk is 0.0%. According to the ACR, ACS, and NCCN guidelines, an annual breast MRI exam along with mammogram is recommended if the patient's lifetime risk is 20% or greater. This exam was interpreted at Station ID: [id number]. NOTE: For mammograms, a report in lay terms will be sent to the patient. Approximately 15% of breast malignancies will not be visualized mammographically. In the management of a palpable breast mass, a negative mammogram must not discourage biopsy of a clinically suspicious lesion. Electronically Signed By: Orlando dasilva/mike:11/28/2022 07:22:16 copy to: Mady Mak letter sent: Normal Exam ACR BI-RADS Category 2: Benign Finding(s) [id number]
--- NOTE | 2022-11-26 09:56 | DI.CT.S_ITS ---
PROCEDURE: CT HEAD/BRAIN WO CON INDICATIONS: Anesthesia of skin TECHNIQUE: Noncontrast 4.5 mm thick angled axial sections acquired from the foramen magnum to the vertex, with coronal and sagittal reformats. For radiation dose reduction, the following was used: automated exposure control, adjustment of mA and/or kV according to patient size. COMPARISON: [facility], CT, HEAD WITHOUT CONTRAST, 08/06/2009, 10:07. FINDINGS: Image quality: Excellent. CSF spaces: Basal cisterns are patent. No extra-axial fluid collections. Ventricles are normal in size and shape. Brain: No midline shift. No intracranial masses or hemorrhage. Teran-white matter interface is normal. Skull and face: Calvarium and visualized facial bones are intact, without suspicious lesions. Sinuses: Visualized sinuses and mastoids are clear. IMPRESSION: 1. No acute intracranial abnormality. 2. Cerebral volume loss and small vessel ischemic changes. Dictated by: Rik Melgar M.D. on 11/26/2022 at 18:30 Approved by: Rik Melgar M.D. on 11/26/2022 at 18:34
== END ==
PROVIDERS: PCP Family Medicine; Referring Provider Family Medicine; Visit Provider Family Medicine
DX: Z12.31 Encounter for screening mammogram for malignant neoplasm of breast (principal); R20.0 Anesthesia of skin
CPT/HCPCS: 70450; 77063; 77067

== ENCOUNTER → 2023-03-06 13:15 | Outpatient (CLI) | payer MEDICARE, SELFPAY ==
[2023-03-06 14:30] LABS: Alanine Aminotransferase 18 IU/L (<35); Albumin 4.1 g/dL (3.5-5.0); Albumin Globulin Ratio 1.5 (1.0-2.8); Alkaline Phosphatase 71 U/L (38-126); Aspartate Aminotransferase 20 IU/L (14-36); BUN Creatinine Ratio 19.9 (6-22); Bilirubin Total 0.5 mg/dL (0.2-1.3); Bilirubin Unconjugated 0.4 mg/dL (0.0-1.1); Blood Urea Nitrogen 28 mg/dL (7-17); Calcium 9.8 mg/dL (8.4-10.2); Carbon Dioxide 26 mmol/L (22-32); Chloride 103 mmol/L (98-107); Estimated Glomerular Filt Rate 38 mL/min (>60); Globulin 2.8 g/dL (1.7-4.1); Glucose 115 mg/dL (80-110); HEMOLYSIS 19 (0-50); Potassium 4.4 mmol/L (3.4-5.1); Sodium 138 mmol/L (137-145); Total Protein 6.9 g/dL (6.3-8.2)
[2023-03-06 14:44] LABS: Free T3, Triiodothyronine Free 2.89 pg/mL (2.77-5.27); Free T4, Direct Thyroxine 1.19 ng/dL (0.78-2.19)
[2023-03-06 14:46] LABS: Vitamin D 25 Hydroxy (D3) 50.3 ng/mL (30.0-100.0)
[2023-03-06 14:58] LABS: Thyroid Stimulating Hormone 1.42 uIU/mL (0.47-4.68)
== END ==
PROVIDERS: PCP Family Medicine; Referring Provider Internal Medicine Endocrinology, Diabetes & Metabolism; Visit Provider Internal Medicine Endocrinology, Diabetes & Metabolism
DX: E05.90 Thyrotoxicosis, unspecified without thyrotoxic crisis or storm (principal); M81.0 Age-related osteoporosis without current pathological fracture; E04.2 Nontoxic multinodular goiter
CPT/HCPCS: 36415; 80053; 80076; 82306; 84439; 84443; 84481

== ENCOUNTER → 2023-06-01 10:28 | Outpatient (CLI) | payer MEDICARE, SELFPAY ==
[2023-06-01 11:05] LABS: Hematocrit 37.7 % (36-46); Hemoglobin 12.6 g/dL (12.0-16.0)
[2023-06-01 12:11] LABS: BUN Creatinine Ratio 13.3 (6-22); Blood Urea Nitrogen 21 mg/dL (7-17); Calcium 8.5 mg/dL (8.4-10.2); Carbon Dioxide 22 mmol/L (22-32); Chloride 104 mmol/L (98-107); Estimated Glomerular Filt Rate 33 mL/min (>60); Glucose 86 mg/dL (80-110); HEMOLYSIS 31 (0-50); Potassium 4.7 mmol/L (3.4-5.1); Sodium 136 mmol/L (137-145)
[2023-06-01 12:14] LABS: Creatinine Urine Random 156.8 mg/dL; Protein (Total) Urine Random 57 mg/dL (0-12); Protein Creatinine Ratio Urine 0.36 GRAM/24H
[2023-06-06 06:32] LABS: Parathyroid Hormone Int 205 pg/mL (15-65)
== END ==
LOC: LAB 10:30
PROVIDERS: PCP Family Medicine; Referring Provider Student in an Organized Health Care Education/Training Program; Visit Provider Student in an Organized Health Care Education/Training Program
DX: N05.9 Unspecified nephritic syndrome with unspecified morphologic changes (principal); D70.9 Neutropenia, unspecified; D63.1 Anemia in chronic kidney disease; N25.81 Secondary hyperparathyroidism of renal origin; R80.9 Proteinuria, unspecified
CPT/HCPCS: 36415; 80048; 82570; 83970; 84156; 85014; 85018

== ENCOUNTER → 2023-06-22 13:09 | Outpatient (CLI) | payer MEDICARE, SELFPAY ==
[2023-06-22 14:46] LABS: Alanine Aminotransferase 15 IU/L (<35); Albumin 4.1 g/dL (3.5-5.0); Albumin Globulin Ratio 1.4 (1.0-2.8); Alkaline Phosphatase 67 U/L (38-126); Aspartate Aminotransferase 21 IU/L (14-36); BUN Creatinine Ratio 15.4 (6-22); Bilirubin Total 0.6 mg/dL (0.2-1.3); Bilirubin Unconjugated 0.3 mg/dL (0.0-1.1); Blood Urea Nitrogen 22 mg/dL (7-17); Calcium 8.9 mg/dL (8.4-10.2); Carbon Dioxide 27 mmol/L (22-32); Chloride 102 mmol/L (98-107); Estimated Glomerular Filt Rate 37 mL/min (>60); Glucose 98 mg/dL (80-110); HEMOLYSIS < 15 (0-50); Potassium 3.9 mmol/L (3.4-5.1); Sodium 137 mmol/L (137-145); Total Protein 7.1 g/dL (6.3-8.2)
[2023-06-22 15:03] LABS: Free T3, Triiodothyronine Free 2.77 pg/mL (2.77-5.27); Free T4, Direct Thyroxine 1.03 ng/dL (0.78-2.19)
[2023-06-22 15:16] LABS: Thyroid Stimulating Hormone 1.66 uIU/mL (0.47-4.68)
[2023-06-22 21:07] LABS: Vitamin D 25 Hydroxy (D3) 34.5 ng/mL (30.0-100.0)
== END ==
PROVIDERS: PCP Family Medicine; Referring Provider Internal Medicine Endocrinology, Diabetes & Metabolism; Visit Provider Internal Medicine Endocrinology, Diabetes & Metabolism
DX: E55.9 Vitamin D deficiency, unspecified (principal); E04.2 Nontoxic multinodular goiter; M81.0 Age-related osteoporosis without current pathological fracture; E05.90 Thyrotoxicosis, unspecified without thyrotoxic crisis or storm
CPT/HCPCS: 36415; 80053; 80076; 82306; 84439; 84443; 84481

== ENCOUNTER → 2023-10-19 09:08 | Outpatient (CLI) | payer MEDICARE, SELFPAY ==
[2023-10-19 10:20] LABS: Albumin 4.2 g/dL (3.5-5.0); Calcium 9.8 mg/dL (8.4-10.2)
== END ==
PROVIDERS: PCP Family Medicine; Referring Provider Internal Medicine Endocrinology, Diabetes & Metabolism; Visit Provider Internal Medicine Endocrinology, Diabetes & Metabolism
DX: E04.2 Nontoxic multinodular goiter (principal); M81.0 Age-related osteoporosis without current pathological fracture; Z51.81 Encounter for therapeutic drug level monitoring
CPT/HCPCS: 36415; 82040; 82310

== ENCOUNTER → 2023-10-27 15:15 | Outpatient (CLI) | payer MEDICARE, SELFPAY ==
--- NOTE | 2023-10-27 | DI.US.S_ITS ---
PROCEDURE: US RENAL COMPLETE INDICATIONS: recurrent UTI TECHNIQUE: Real-time scanning was performed of the kidneys and bladder, with image documentation. COMPARISON: [facility], US, RENAL COMPLETE, 08/21/2015, 14:15. [facility], CT, CT ABDOMEN PELVIS WO CON, 05/26/2021, 11:50. FINDINGS: Kidneys: Right kidney is normal in size. Left kidney is absent. Right kidney measures 11.6 cm long; renal cortex measures 1.5 cm long. Renal cortical echotexture is normal. No hydronephrosis. Echogenic focus measuring 6 mm within the right kidney, may represent a nonobstructing stone. No suspicious solid mass lesions. Bladder: Bladder empty at time of exam and not well evaluated. Miscellaneous: No free pelvic fluid. IMPRESSION: 1. Possible 6 mm nonobstructing stone within the right kidney. Right kidney is otherwise normal appearance without hydronephrosis. 2. Left kidney is absent. 3. Bladder was empty at the time of exam and not well evaluated. Dictated by: Brant Medina M.D. on 10/28/2023 at 13:21 Approved by: Brant Medina M.D. on 10/28/2023 at 13:23
== END ==
LOC: US 15:16
PROVIDERS: PCP Family Medicine; Referring Provider Family Medicine; Visit Provider Family Medicine
DX: N39.0 Urinary tract infection, site not specified (principal); R10.9 Unspecified abdominal pain; Z90.5 Acquired absence of kidney
CPT/HCPCS: 76770

== ENCOUNTER → 2023-10-27 15:27 | Outpatient (CLI) | payer MEDICARE, SELFPAY ==
--- NOTE | 2023-10-27 | DI.US.S_ITS ---
PROCEDURE: US THYROID INDICATIONS: Nontoxic multinodular goiter TECHNIQUE: Real-time scanning was performed of the thyroid gland, with image documentation. COMPARISON: [facility], US, US THYROID, 12/30/2021, 11:43. FINDINGS: Thyroid: Right lobe measures 4.7 x 2.3 x 2.2 cm. Left lobe measures 8.3 x 3.9 x 3.8 cm. Isthmus is 0.6 cm thick. Echotexture is heterogeneous and echogenic throughout the left thyroid lobe. Mildly heterogeneous right thyroid lobe. Nodule number: 1 Location: Right inferior pole Size: 1.4 x 1.2 x 1.3 cm, previously 1.2 x 1.0 x 1.1 cm. Composition: Solid Echogenicity: Hypoechoic Shape: wider than tall. Margins: Smooth Echogenic foci: No Total points: Four ACR TI-RADS category: Moderately suspicious Previously documented right-sided nodules two and three are less than 1 cm. Nodule number: 2 (previously 5, previously biopsied) Location: Left mid and inferior pole Size: 5.7 x 3.9 x 5.0, previously 4.7 x 3.2 x 3.4 cm. Composition: Solid Echogenicity: Heterogeneous, isoechoic to thyroid Shape: wider than tall. Margins: Indistinct Echogenic foci: No Total points: Three ACR TI-RADS category: Mildly suspicious, previously biopsied Nodule number: Three (previously 4. Previously biopsied) Location: Left superior pole Size: 1.5 x 1.2 x 1.8 cm, previously 2.8 x 1.3 x 2.8 cm. Composition: Solid Echogenicity: Hyperechoic Shape: wider than tall. Margins: Smooth Echogenic foci: No Total points: Three ACR TI-RADS category: Mildly suspicious IMPRESSION: Enlarged left thyroid lobe with benign nodularity. Slight enlargement of right lower pole nodule. Continued follow-up is recommended. ACR TI-RADS definitions and recommendations: TI-RADS 1 (benign): 0 points. FNA not needed. TI-RADS 2 (not suspicious): 2 points. FNA not needed. TI-RADS 3 (mildly suspicious): 3 points. * FNA if 2.5 cm or larger, follow up if 1.5 cm or larger (at 1, 3, and 5 years). TI-RADS 4 (moderately suspicious): 4-6 points. * FNA if 1.5 cm or larger, follow up if 1 cm or larger (at 1, 2, 3, and 5 years). TI-RADS 5 (highly suspicious): 7 points or more. * FNA if 1 cm or larger, follow up if 0.5 cm or larger (every year for 5 years). Dictated by: Filomena Tierney M.D. on 10/27/2023 at 17:25 Approved by: Filomena Tierney M.D. on 10/27/2023 at 17:35
== END ==
PROVIDERS: PCP Family Medicine; Referring Provider Internal Medicine Endocrinology, Diabetes & Metabolism; Visit Provider Internal Medicine Endocrinology, Diabetes & Metabolism
DX: E04.2 Nontoxic multinodular goiter (principal); N39.0 Urinary tract infection, site not specified; R10.9 Unspecified abdominal pain; Z90.5 Acquired absence of kidney
CPT/HCPCS: 76536; 76770

== ENCOUNTER → 2023-11-02 14:11 | Outpatient (CLI) | payer MEDICARE, SELFPAY ==
[2023-11-02 14:53] LABS: Hematocrit 37.1 % (36-46); Hemoglobin 12.5 g/dL (12.0-16.0)
[2023-11-02 15:10] LABS: Blood Urea Nitrogen 28 mg/dL (7-17); Calcium 9.1 mg/dL (8.4-10.2); Carbon Dioxide 25 mmol/L (22-32); Chloride 103 mmol/L (98-107); Estimated Glomerular Filt Rate 29 mL/min (>60); Glucose 265 mg/dL (80-110); HEMOLYSIS 38 (0-50); Sodium 136 mmol/L (137-145)
[2023-11-02 16:34] LABS: Creatinine Urine Random 85.21 mg/dL; Protein (Total) Urine Random 32 mg/dL (0-12); Protein Creatinine Ratio Urine 0.37 GRAM/24H
[2023-11-05 08:07] LABS: Parathyroid Hormone Int 43 pg/mL (15-65)
== END ==
LOC: LAB 14:13
PROVIDERS: PCP Family Medicine; Referring Provider Student in an Organized Health Care Education/Training Program; Visit Provider Student in an Organized Health Care Education/Training Program
DX: N05.9 Unspecified nephritic syndrome with unspecified morphologic changes (principal); D70.9 Neutropenia, unspecified; D63.1 Anemia in chronic kidney disease; N25.81 Secondary hyperparathyroidism of renal origin; R80.9 Proteinuria, unspecified
CPT/HCPCS: 36415; 80048; 82570; 83970; 84156; 85014; 85018

== ENCOUNTER → 2023-11-17 12:42 | Outpatient (CLI) | payer MEDICARE, SELFPAY ==
--- NOTE | 2023-11-17 12:44 | DI.US.S_ITS ---
PROCEDURE: US FINE NEEDLE ASPIRATION INDICATIONS: Nontoxic multinodular goiter TECHNIQUE: The indications, alternatives, benefits, risks, and complications of the procedure were explained to the patient. Written informed consent was obtained and placed in the chart. The thyroid region was examined sonographically and a site was chosen for ultrasound guided percutaneous sampling. The skin was prepared and draped in the usual fashion, and anesthetized with 1% lidocaine infiltrated from the skin down to the thyroid gland. Multiple passes were then performed, with contents emptied into an appropriate pathology specimen container. A bandage was applied to the area of access at completion of the study. COMPARISON: [facility], US, US THYROID, 10/27/2023, 15:49. [facility], US, US FINE NEEDLE ASPIRATION, 01/05/2022, 9:55. FINDINGS: Location(s) of lesion(s) sampled: Left mid/inferior thyroid nodule measuring 5.7 cm on the prior exam. Labeled #2 on the prior exam. [place]: 25 gauge hypodermic needles x3; 22 gauge hypodermic needles x6. (9 samples total). Medications: 1% lidocaine for local anaesthesia. Complications: No significant bleeding. IMPRESSION: Successful ultrasound-guided thyroid nodule fine needle aspiration, with cytology results pending. Please see chart below for management recommendations based on cytology results. [facility] ReportingRecommendationsNon-diagnostic* Repeat US-guided FNA, with on-site cytology evaluation if possible. * Repeated non-diagnostic nodules without high suspicion US features: close observation vs surgical consult. * Consider surgery if nodule has high suspicion US features, grows >20% in 2 dimensions on followup, or patient has clinical risk factors for malignancy. Benign* If nodule has high suspicion US features: repeat US and FNA within 12 months. * If nodule has low to intermediate suspicion US features: repeat US at 12-24 months. If nodule grows (20% increase in at least 2 dimensions, with minimal increase of 2 mm or >50% change in volume), or development of new suspicious US features, then repeat FNA or continue followup. * If nodule has very low suspicion US features: followup US at >24 months. Atypia of undetermined significance, follicular lesion of undetermined significanceRepeat FNA, molecular testing, followup US, or surgical consult.Follicular neoplasm, suspicious for follicular neoplasmSurgical consult; also consider molecular testing. Suspicious for malignancySurgical consult.MalignantSurgical consult. Dictated by: Ricardo Lozoya M.D. on 11/17/2023 at 16:02 Approved by: Ricardo Lozoya M.D. on 11/17/2023 at 16:05
--- NOTE | 2023-11-17 14:00 | PATH_ITS ---
Note [facility] Accession Number: [id number] TESTS RESULT FLAG UNITS REF RANGE LAB Clinician Provided Cytology Information No. of containers..01 Other (Miscellaneous) No. of containers..08 Previously Prepared Cytology Slide Source: LEFT THYROID NODULE #2 DIAGNOSIS: LEFT THYROID NODULE #2 NEGATIVE FOR MALIGNANT CELLS. BETHESDA CATEGORY II. SPECIMEN CONSISTS OF BENIGN FOLLICULAR CELLS, HEMOSIDERIN-LADEN MACROPHAGES, COLLOID, AND BLOOD. THIS PATTERN IS CONSISTENT WITH FOLLICULAR NODULAR DISEASE. SEE COMMENT.l COMMENT: Microscopic examination reveals an adequately cellular aspirate, composed of colloid and predominantly macro- follicular groups without significant cytologic or architectural atypia. These findings favor a benign follicular (goiterous) nodule. According to the bethesda reporting system for thyroid cytopathology, the risk of malignancy in the category benign-category II is 0-3%; therefore recommend continued ultrasound surveillance with repeat Fna if the nodule significantly increases in size. Pathologist ICD10: 01 E04.1 Clinical history: 01 CLIENT REQUESTED THYRAMIR IF ATYPICAL. LOCATION: LEFT MID AND INFERIOR POLE FINE-NEEDLE ASPIRATION BIOPSY FOR NODULE #2 ON THE LEFT WHICH DOUBLE IN SIZE. Signed out by: Tova Eric MD, Pathologist NPI- [id number] Performed by: Christian Harry, Branch Chief ([facility]) Gross description: 30 CC, RED, CLOUDY RECIEVED: IN CYTOLYT WITH 9 ALCOHOL FIXED AND 9 QUICK STAINED SLIDES ALSO 1 RNA VIAL WILL ON 05-09-2025.VO /VDU 11/20/2023 0930 Local FLAG LEGEND: L-Low Normal,H-High Normal,LL-Alert Low,HH-Alert High <-Panic Low,>-Panic High,A-Abnormal,AA-Critical Abnormal Performed at: 01 =Z [address] [address], [place] [address] Valentino Maki MD, Specimen Comment: [id number] Performed at: 01 [address] [address], [place], [place] [id number] MD Valentino Maki MD Phone: [phone]
== END ==
PROVIDERS: PCP Family Medicine; Referring Provider Internal Medicine Endocrinology, Diabetes & Metabolism; Visit Provider Internal Medicine Endocrinology, Diabetes & Metabolism
DX: E04.2 Nontoxic multinodular goiter (principal)
CPT/HCPCS: 10005

== ENCOUNTER → 2024-12-12 14:51 | Outpatient (CLI) | payer MEDICARE, SELFPAY ==
--- NOTE | 2024-12-12 14:53 | DI.RAD.S_ITS ---
PROCEDURE: XR DEXA AXIAL SKELETON INDICATIONS: OSTEOPOROSIS/ANNUAL SCREENING/ GOITER COMPARISON: [facility], , XR DEXA AXIAL SKELETON, 12/30/2021, 12:06. [facility], CR, XR DEXA AXIAL SKELETON, 06/29/2018, 12:44. FINDINGS: Lumbar Spine: Bone mineral density 1.25 g/cm2, T score 1.8, previously 0.8. Left Femoral Neck: Bone mineral density 0.60 g/cm2, T score -2.3. Previously -2.6 Left Hip: Bone mineral density 0.83 g/cm2, T score -1, previously -1.2. Fracture Risk Calculation (when applicable): 10-year fracture risk of a major osteoporotic fracture 16% percent and of a hip fracture 5% percent. (T score greater or equal to -1.0 to: NORMAL) (T score from -1.1 to -2.4: OSTEOPENIA) (T score less than or equal to -2.5: OSTEOPOROSIS) IMPRESSION: Slightly improved left femoral neck and left hip T-scores. Osteopenia. Significantly elevated fracture risk by FRAX calculation. Follow-up guidelines as follows: Osteoporosis: Consider a repeat DEXA and Vertebral Fracture Assessment (VFA) exam in 2 years or sooner if medically necessary, to reassess this patient's status. Osteopenia: Consider a repeat DEXA in 2-3 years to reassess this patient's status, or if there is a new clinical indication. Normal: Consider a repeat DEXA in 5 years or sooner, or if there is a new clinical indication. All treatment decisions require clinical judgment and consideration of individual patient factors, including patient preferences, comorbidities, previous drug use, risk factors not captured in the FRAX model (e.g., frailty, falls, vitamin D deficiency, increased bone turnover, interval significant decline in bone density ) and possible under- or over-estimation of fracture risk by FRAX. In addition, the NOF Guide recommends that FDA-approved medical therapies be considered in postmenopausal women and men age >= 50 years with a: * Hip or vertebral (clinical or morphometric) fracture * T-score of <=-2.5 at the spine or hip * Ten-year fracture probability by FRAX of >= 3% for hip fracture or >=20% for major osteoporotic fracture. Dictated by: Raymond Robin M.D. on 12/14/2024 at 6:48 Approved by: Raymond Robin M.D. on 12/14/2024 at 6:50
--- NOTE | 2024-12-12 14:54 | DI.US.S_ITS ---
PROCEDURE: US THYROID INDICATIONS: OSTEOPOROSIS/ANNUAL SCREENING/ GOITER TECHNIQUE: Real-time scanning was performed of the thyroid gland, with image documentation. COMPARISON: [facility], US, US THYROID, 10/27/2023, 15:49. FINDINGS: Thyroid: Right lobe measures 5.3 x 2.3 x 2.2 cm. Left lobe measures 8.4 x 5.2 x 4.1 cm. Isthmus is 0.8 cm thick. Echotexture is heterogeneous. Nodule number: 1 Location: Right inferior Size: 1.8 x 1.5 x 1.2 cm. (Previously 1.4 x 1.3 x 1.2 cm). Composition: Solid Echogenicity: Hypoechoic Shape: wider than tall. Margins: Smooth Echogenic foci: None Total points: 4 ACR TI-RADS category: TR 4. Nodule number: 2 Location: Left mid/inferior Size: 6.3 x 4.1 x 4 cm. (Previously 5.7 x 5 x 3.9 cm). Composition: Solid Echogenicity: Isoechoic Shape: Taller than wide Margins: Smooth Echogenic foci: None Total points: 6 ACR TI-RADS category: TR 4. Prior FNAs. Nodule number: 3 Location: Left superior Size: 2.3 x 1.9 x 1.2 cm. (Previously 1.8 x 1.5 x 1.2 cm). Composition: Solid Echogenicity: Isoechoic Shape: wider than tall. Margins: Smooth Echogenic foci: None Total points: 3 ACR TI-RADS category: TR 3. Prior FNAs. Nodule number: 4 Location: Isthmus Size: 1.2 x 0.9 x 0.5 cm. Not previously seen. Composition: Mixed cystic and solid Echogenicity: Hypoechoic Shape: wider than tall. Margins: Smooth Echogenic foci: None Total points: 3 ACR TI-RADS category: TR 3. IMPRESSION: 1. Multinodular goiter. Prior thyroid FNAs. 2. A newly measured isthmus nodule measuring 1.2 cm. TR 3. 3. Otherwise the thyroid nodules are not significantly changed. ACR TI-RADS definitions and recommendations: TI-RADS 1 (benign): 0 points. FNA not needed. TI-RADS 2 (not suspicious): 2 points. FNA not needed. TI-RADS 3: 3 points. * FNA if 2.5 cm or larger, follow up if 1.5 cm or larger (at 1, 3, and 5 years). TI-RADS 4: 4-6 points. * FNA if 1.5 cm or larger, follow up if 1 cm or larger (at 1, 2, 3, and 5 years). TI-RADS 5: 7 points or more. * FNA if 1 cm or larger, follow up if 0.5 cm or larger (every year for 5 years). Dictated by: Ricardo Lozoya M.D. on 12/13/2024 at 14:00 Approved by: Ricardo Lozoya M.D. on 12/13/2024 at 14:15
--- NOTE | 2024-12-12 14:54 | DI.MG.S_ITS ---
MM screening mammo BI: 12/12/2024. BI-RADS: 2 CLINICAL: 83-year old female for bilateral screening mammogram. Tyrer-Cuzick lifetime risk of 0.5%. No personal or first-degree family history of breast cancer. The patient had a prior left breast biopsy. PRIOR EXAMS 11/26/2022, 04/15/2020, 06/29/2018, 04/25/2017, MAMMOGRAPHY TECHNIQUE: 2D and 3D (tomosynthesis) digital mammographic views obtained, with additional images as needed for full coverage. Current study was also evaluated with a Computer Aided Detection (CAD) system. DENSITY A. The breasts are almost entirely fatty. MAMMOGRAPHY FINDINGS Bilateral: Benign-appearing calcifications noted. Typically-benign vascular calcifications also noted. No significant change from comparison. IMPRESSION: * No evidence of malignancy with benign findings. RECOMMENDATIONS Bilateral * Annual screening mammography. OVERALL ASSESSMENT CATEGORY BI-RADS-2: Benign. The [employer] recommends annual screening mammography beginning at age 40 for women with average risk of breast cancer. ELECTRONICALLY SIGNED: Filomena Tierney M.D. on 12/13/2024 at 09:08:29 AM PT Interpreting Station ID: [id number]
== END ==
PROVIDERS: PCP Family Medicine; Referring Provider Family Medicine; Visit Provider Family Medicine
DX: Z12.31 Encounter for screening mammogram for malignant neoplasm of breast (principal); R92.313 Mammographic fatty tissue density, bilateral breasts; E04.2 Nontoxic multinodular goiter; M81.6 Localized osteoporosis [Lequesne]
CPT/HCPCS: 76536; 77063; 77067; 77080

== ENCOUNTER → 2025-01-22 | Outpatient (CLI) | payer MEDICARE, SELFPAY ==
--- NOTE | 2025-01-22 13:59 | DI.ECHO.S_ITS ---
[facility] : : [address] : : [place] : : [id number] : : Phone: [phone] Echocardiogram Report + + :Name: CATHERINE MEDINA Study Date: 01/22/2025 Height: 64 in : :[facility] ReadingLocation: Weight: 172 lb : : Gender: Female BSA: 1.8 m2 : :: 1940 Age: 84 yrs BP: 148/70 mmHg: :Reason For Study: Syncope : :Ordering Physician: FLORINDA, : :ADAM Performed By: Theron Babb : :Referring: ADAM NEELY : + + Interpretation Summary The ejection fraction is estimated to be 55-60%. Diastolic function is indeterminate. The right ventricle is normal in size and function. No significant valvular abnormalities. Pulmonary artery pressures cannot be estimated because of the lack of a measurable TR jet velocity. Procedure: A two-dimensional transthoracic echocardiogram with color flow and Doppler was performed. The study quality was technically adequate. There is no prior echocardiogram noted for this patient. The heart rate ranged between 55-61 bpm during the study. The patient was in normal sinus rhythm during the exam. Left Ventricle: The left ventricle is normal in size. Left ventricular wall thickness is mildly increased. Left ventricular systolic function is normal. The ejection fraction is estimated to be 55-60%. There are no focal wall motion abnormalities. Diastolic function is indeterminate. Right Ventricle: The right ventricle is normal in size and function. Atria: The left atrial size is normal. Right atrial size is normal. There is no Doppler evidence for an interatrial shunt. Mitral Valve: There is mild mitral annular calcification. The mitral valve leaflets appear mildly thickened. There is no mitral valve stenosis. There is trace mitral regurgitation. Aortic Valve: The aortic valve is trileaflet. The aortic valve opens well. There is no aortic valve stenosis. There is trace aortic regurgitation. Tricuspid Valve: The tricuspid valve is not well visualized, but is grossly normal. There is trace tricuspid regurgitation. Pulmonary artery pressures cannot be estimated because of the lack of a measurable TR jet velocity. Pulmonic Valve: The pulmonic valve is not well seen, but is grossly normal. There is trace pulmonic regurgitation. Great Vessels: The aortic root is normal size. The ascending aorta is normal in size. The aortic arch could not be visualized. The inferior vena cava was not well visualized. Pericardium/ Pleura There is no pericardial effusion. MMode/2D Measurements & Calculations LVIDd: 4.4 cm LVOT diam: 2.2 cm LVIDs: 3.1 cm Ao root diam: 3.1 cm FS: 30.9 % asc Aorta Diam: 3.4 cm IVSd: 1.3 cm LVPWd: 1.2 cm LV younger. diameter/BSA (cm/m^2): 2.4 LV sys. diameter/BSA (cm/m^2): 1.7 LA A2 area: 19.6 cm2 RA long axis: 4.6 cm LA A4 area: 16.3 cm2 RA area: 8.9 cm2 LA length (vol): 5.0 cm RA vol: 14.9 ml LA vol: 54.5 ml RA : 8.1 ml/m2 LA vol index: 29.7 ml/m2 IVC diam: 1.9 cm RVD1 (basal): 2.3 cm RVD2 (mid): 2.0 cm TAPSE: 1.6 cm Doppler Measurements & Calculations Ao V2 max: 107.7 cm/sec LVOT Max Andrew: 86.2 cm/sec Ao V2 mean: 78.7 cm/sec LV V1 max P.0 mmHg Ao max P.6 mmHg LV V1 VTI: 20.9 cm Ao mean P.8 mmHg KENIA(I,D): 3.0 cm2 Ao V2 VTI: 26.7 cm KENIA(V,D): 3.1 cm2 sev ratio: 0.79 KENIA indexed to BSA (cm^2/m^2): 1.6 AI P1/2t: 956.7 msec AI dec slope: 148.3 cm/sec2 MV E max andrew: 78.7 cm/sec TR max andrew: 254.0 cm/sec MV A max andrew: 111.0 cm/sec TR max P.8 mmHg MV E/A: 0.71 PA V2 max: 90.7 cm/sec Med Peak E' Andrew: 5.0 cm/sec PA V2 mean: 58.8 cm/sec E/E' med: 15.6 PA mean P.6 mmHg Lat Peak E' Andrew: 4.1 cm/sec PA pr(Accel): 32.8 mmHg E/E' lat: 19.0 E/e' average: 17.3 MV dec time: 0.27 sec SV(LVOT): 80.6 ml Reading Physician:12:53 PM
--- NOTE | 2025-01-22 13:59 | DI.US.S_ITS ---
PROCEDURE: US CAROTID DOPPLER BI INDICATIONS: SYNCOPE TECHNIQUE: Color and pulse Doppler interrogation was performed of both carotid systems, with image documentation and velocity measurements. COMPARISON: None. FINDINGS: Stenosis calculations are based on SRU (Society of Radiologists in Ultras[employer]) criteria. Right side: Brachial blood pressure: 146/70 mm Hg. Common carotid artery peak systolic velocity: 56 cm/sec. Internal carotid artery peak systolic velocity: 68 cm/sec. Internal carotid artery end diastolic velocity: 10 cm/sec. External carotid artery peak systolic velocity: 41 cm/sec. ICA/CCA peak systolic ratio: 1.2 . Teran scale imaging description: No significant plaque. Percent internal carotid artery stenosis: No hemodynamically significant stenosis. . Vertebral artery: Flow direction is antegrade. Left side: Brachial blood pressure: 144/73 mm Hg. Common carotid artery peak systolic velocity: 60 cm/sec. Internal carotid artery peak systolic velocity: 61 cm/sec. Internal carotid artery end diastolic velocity: 16 cm/sec. External carotid artery peak systolic velocity: 76 cm/sec. ICA/CCA peak systolic ratio: 1.0 . Teran scale imaging description: No significant scattered plaque. Percent internal carotid artery stenosis: No hemodynamically significant stenosis. . Vertebral artery: Flow direction is antegrade. IMPRESSION: No hemodynamically significant carotid stenosis. Dictated by: Orlin Castro RR Interpreted: Travon Huitron MD on 01/22/2025 at 15:17 Transcribed by: SONYA on 01/22/2025 at 15:19 Approved by: Travon Huitron M.D. on 02/19/2025 at 12:17
== END ==
LOC: US 13:57
PROVIDERS: PCP Family Medicine; Referring Provider Family Medicine; Visit Provider Family Medicine
DX: I34.81 Nonrheumatic mitral (valve) annulus calcification (principal); R55 Syncope and collapse
CPT/HCPCS: 93306; 93880